=== PATIENT | female | born 1990 | race American Indian/Alaskan Native ===

== ENCOUNTER 2016-09-24 12:20 | Emergency (ER) | payer MEDICAID ==
[2016-09-24 13:29] LABS: Basophils % (Auto) 0.4 % (0.0-1.8); Hematocrit 37.6 % (30.3-42.9); Hemoglobin 12.4 gm/dl (10.1-14.3); Mean Corpuscular HGB Conc 33 % (30-34); Mean Corpuscular Hemoglobin 27 pg (28-32); Mean Corpuscular Volume 83 fl (79-97); Platelet Count 131 K/mm3 (140-440); Red Blood Count 4.53 M/mm3 (3.65-5.03); Red Cell Distribution Width 15.8 % (13.2-15.2); White Blood Count 7.2 K/mm3 (4.5-11.0)
[2016-09-24 13:42] LABS: Alanine Aminotransferase 21 units/L (7-56); Albumin 3.6 g/dL (3.9-5); Albumin/Globulin Ratio 1.2 %; Alkaline Phosphatase 70 units/L (35-129); Anion Gap 16 mmol/L; BUN/Creatinine Ratio 16.66; Bilirubin,Total 0.2 mg/dL (0.1-1.2); Blood Urea Nitrogen 10 mg/dL (7-17); Calcium 9.2 mg/dL (8.4-10.2); Carbon Dioxide 24 mmol/L (22-30); Chloride 102.4 mmol/L (98-107); Glucose 69 mg/dL (65-100); Lipase 20 units/L (13-60); Potassium 3.9 mmol/L (3.6-5.0); Sodium 138 mmol/L (137-145); Total Protein 6.7 g/dL (6.3-8.2)
[2016-09-24 13:53] LABS: Bacteria,Urine 1+ /HPF (Negative); Bilirubin,Urine NEG (Negative); Blood,Urine NEG (Negative); Ketones,Urine NEG (Negative); Leukocyte Esterase,Urine SM (Negative); Mucus,Urine 1+ /HPF; Nitrite,Urine NEG (Negative); Protein,Urine <15 mg/dL mg/dL (Negative)
--- NOTE | 2016-09-24 14:21 | Emergency Department Report ---
HPI - General Chief Complaint: Abdominal Pain Time Seen by Provider: 09/24/16 14:07 - HPI HPI: This is a 26-year-old Afro-Ind[place]ian female presents to the emergency department , driving herself and to be seen, with complaint of a one-week history of lower abdominal pain as well as bilateral lower rib pain. She denies any vaginal bleeding, dysuria, nausea, vomiting, diarrhea, fever, back pain, chest pain or any shortness of breath. She is not taken anything for symptoms prior to presentation. She does not have a primary care doctor but goes to [facility]. She denies any past medical history. No recent travel or sick contacts at home. ED Past Medical Hx - Past Medical History Previous Medical History?: No Hx Hypertension: No Hx Congestive Heart Failure: No Hx Diabetes: No Hx Deep Vein Thrombosis: No Hx Renal Disease: No Hx Sickle Cell Disease: No Hx Seizures: No Hx Asthma: No Hx COPD: No Hx Tuberculosis: No Hx HIV: No - Surgical History Past Surgical History?: No - Social History Smoking Status: Current Every Day Smoker Substance Use Type: Alcohol - Medications Home Medications: Home Medications Medication Instructions Recorded Confirmed Last Taken Type Pnv with Ca,No.72/Iron/FA 1 tab PO DAILY 02/06/15 02/16/15 Unknown History [ Vitamin with Low Iron] Acetaminophen/Codeine [Tylenol #3] 1 tab PO Q8H PRN #9 tablet 03/14/15 Unknown Rx Nitrofurantoin [place]/M-Cryst 100 mg PO Q12HR #14 capsule 03/14/15 Unknown Rx [Macrobid CAP] Amoxicillin [Amoxicillin TAB] 875 mg PO BID #14 tablet 04/15/16 Unknown Rx Benzonatate [Tessalon Perles] 100 mg PO Q8HR #30 capsule 04/15/16 Unknown Rx Ibuprofen [Motrin 800 MG tab] 800 mg PO Q8HR PRN #20 tablet 04/15/16 Unknown Rx Vit No.130/Iron/FA 1 each PO QDAY #30 tablet 09/24/16 Unknown Rx [ Tablet] ED Review of Systems ROS: Stated complaint: LWR ABD PAIN /RT & LT SIDE PAIN Other details as noted in HPI Comment: All other systems reviewed and negative Constitutional: denies: chills, fever Eyes: denies: eye pain, eye discharge, vision change ENT: denies: ear pain, throat pain Respiratory: denies: cough, shortness of breath, wheezing Cardiovascular: denies: chest pain, palpitations Gastrointestinal: abdominal pain. denies: nausea, vomiting Genitourinary: denies: urgency, dysuria, hematuria Musculoskeletal: denies: back pain, joint swelling, arthralgia Skin: denies: rash, lesions Neurological: denies: headache, weakness, paresthesias Physical Exam - Physical Exam Vital Signs: Vital Signs 09/24/16 09/24/16 12:27 13:52 Temperature 98.4 F 98.9 F Pulse Rate 73 68 Respiratory 18 18 Rate Blood Pressure 128/60 Blood Pressure 102/48 [Right] O2 Sat by Pulse 100 96 Oximetry Physical Exam: GENERAL: The patient is well-developed well-nourished. HEENT: Normocephalic. Atraumatic. Extraocular motions are intact. Patient has moist mucous membranes. Pupils equal reactive to light bilaterally. NECK: Supple. Trachea is midline. CHEST/LUNGS: Clear to auscultation. There is no respiratory distress noted. HEART/CARDIOVASCULAR: Regular. There is no tachycardia. There is no gallop rub or murmur. ABDOMEN: Abdomen is soft, nontender. Pain is not reproducible palpation. No guarding rebound tenderness. No peritoneal signs. Patient has normal bowel sounds. There is no abdominal distention. SKIN: There is no rash. There is no edema. There is no diaphoresis. NEURO: The patient is awake, alert, and oriented. The patient is cooperative. The patient has no focal neurologic deficits. The patient has normal speech. MUSCULOSKELETAL: There is no tenderness or deformity. There is no limitation range of motion. There is no evidence of acute injury. ED Course Vital Signs 09/24/16 09/24/16 12:27 13:52 Temperature 98.4 F 98.9 F Pulse Rate 73 68 Respiratory 18 18 Rate Blood Pressure 128/60 Blood Pressure 102/48 [Right] O2 Sat by Pulse 100 96 Oximetry - Reevaluation(s) Reevaluation #1: Patient's urine test is positive. The patient says that she is currently with 4 live children and one previous miscarriage. She will get a transvaginal/ ultrasound and a [facility] hCG quantitative. 09/24/16 14:58 ED Medical Decision Making - Lab Data Result diagrams: 09/24/16 13:08 09/24/16 13:08 - Radiology Data Radiology results: report reviewed Transvaginal/ ultrasound shows a live intrauterine at about 7 weeks and 1 day. - Medical Decision Making 26-year-old female presents emergency Department with a one-week history of some intermittent lower abdominal/pelvic discomfort. Patient's labs are mostly unremarkable but are positive for urine . A quantitative level was then obtained that is greater than 75,000. Transvaginal/ ultrasound shows a live intrauterine . This may be the source of the patient's discomfort. There is no fever, vomiting or peritoneal signs believe she is low suspicion for appendicitis. Belly labs are normal including bilirubin, lipase and LFTs. There is no urinary tract infection. Patient will be started on vitamins. She will use Tylenol for discomfort. She already has established care at [facility]. She'll return to the ER with any worsening of her symptoms or any acute distress. - Differential Diagnosis , miscarriage, fibroids, UTI, cholecystitis Critical Care Time: No Critical care attestation.: If time is entered above; I have spent that time in minutes in the direct care of this critically ill patient, excluding procedure time. ED Disposition Clinical Impression: Qualifiers: Weeks of gestation: less than 8 weeks Qualified Code(s): Z3A.01 - Less than 8 weeks gestation of Abdominal pain Qualifiers: Abdominal location: lower abdomen, unspecified Qualified Code(s): R10.30 - Lower abdominal pain, unspecified Disposition: DISCHARGED TO HOME OR SELFCARE Is pt being admited?: No Condition: Stable Instructions: Abdominal Pain (ED), (ED) Additional Instructions: Please follow up with [facility] in the next few days. Start taking your vitamins. You can take Tylenol every 4 hours, using weight-based dosing, as needed for discomfort. Otherwise do not take any medications that are not prescribed by a physician. Return to the emergency department with any worsening of her symptoms, vaginal bleeding, or any acute distress. Prescriptions: Vit No.130/Iron/FA [ Tablet] 1 each PO QDAY #30 tablet Referrals: PRIMARY MD CARMELA [Primary Care Provider] - 3-5 Days [facility] [Provider Group] - 3-5 Days Time of Disposition: 16:49
--- NOTE | 2016-09-24 16:17 | Ultrasound Report ---
Transabdominal and transvaginal OB ultrasound. Findings: A single intrauterine is identified with a crown-rump length of 1 cm corresponding to gestational age of 7 weeks. The heart rate is 145 beats per minute. There is no evidence of subchorionic hemorrhage. The ovaries are normal in size. There is a 1.9 cm in diameter complex area in the left ovary. There is no fluid within the cul-de-sac. Impression: 1. Viable IUP at 7 weeks gestation. 2. Probable left corpus luteum cyst.
[2016-09-24 17:09] VITALS: BP 110/59
== END 2016-09-24 17:09 | disposition home or self-care (01) ==
LOC: ED 12:20
DX: O26.891 Other specified pregnancy related conditions, first trimester (principal); R10.30 Lower abdominal pain, unspecified; Z3A.01 Less than 8 weeks gestation of pregnancy; F17.200 Nicotine dependence, unspecified, uncomplicated; Z88.5 Allergy status to narcotic agent
CPT/HCPCS: 36415; 76801; 76817; 80053; 81001; 81025; 83690; 84702; 85025; 99284

== ENCOUNTER 2016-12-11 00:35 | Emergency (ER) | payer MEDICAID ==
[2016-12-11 04:06] LABS: Basophils % (Auto) 0.2 % (0.0-1.8); Eosinophils % (Auto) 1.1 % (0.0-4.3); Hematocrit 34.4 % (30.3-42.9); Hemoglobin 11.8 gm/dl (10.1-14.3); Mean Corpuscular HGB Conc 34 % (30-34); Mean Corpuscular Hemoglobin 29 pg (28-32); Mean Corpuscular Volume 84 fl (79-97); Platelet Count 132 K/mm3 (140-440); Red Blood Count 4.08 M/mm3 (3.65-5.03); Red Cell Distribution Width 15.6 % (13.2-15.2)
[2016-12-11 04:11] LABS: Alanine Aminotransferase 9 units/L (7-56); Albumin 3.8 g/dL (3.9-5); Albumin/Globulin Ratio 1.5 %; Alkaline Phosphatase 86 units/L (35-129); Anion Gap 18 mmol/L; Bilirubin,Total < 0.20 mg/dL (0.1-1.2); Blood Urea Nitrogen 8 mg/dL (7-17); Calcium 8.8 mg/dL (8.4-10.2); Carbon Dioxide 22 mmol/L (22-30); Chloride 98.8 mmol/L (98-107); Glucose 92 mg/dL (65-100); Lipase 13 units/L (13-60); Potassium 3.6 mmol/L (3.6-5.0); Sodium 135 mmol/L (137-145); Total Protein 6.4 g/dL (6.3-8.2)
[2016-12-11 04:29] LABS: Bilirubin,Urine NEG (Negative); Blood,Urine NEG (Negative); Ketones,Urine NEG (Negative); Leukocyte Esterase,Urine LG (Negative); Mucus,Urine FEW /HPF; Nitrite,Urine POS (Negative); Urobilinogen,Urine < 2.0 mg/dL (<2.0)
[2016-12-11 04:31] LABS: WBC,Urine > 182.0 /HPF (0.0-6.0)
[2016-12-11] MEDS ORDERED: NACL 0.9% 1000 ML 1,000 ML IV ONE (11:01)
[2016-12-11] MEDS ORDERED: ROCEPHIN/NS 1 GM/50 ML 1 GM/50 ML BAG IV ONE (11:01)
[2016-12-11 12:22] VITALS: BP 116/66
--- NOTE | 2016-12-11 14:12 | Emergency Department Report ---
ED Female HPI - General Chief complaint: Abdominal Pain Stated complaint: ABD/VAGINAL PAIN Time Seen by Provider: 12/11/16 10:33 Source: patient Mode of arrival: Ambulatory Limitations: No Limitations - History of Present Illness MD Complaint: dysuria, pelvic pain -: Gradual Radiation: L flank, R flank Severity: moderate Severity scale (0 -10): 5 Quality: cramping, sharp Consistency: intermittent Improves with: none Worsens with: urination Are you Now?: Yes Associated Symptoms: abdominal pain, dysuria. denies: vaginal discharge, vaginal bleeding, nausea/vomiting, headaches, loss of appetite, hematuria, rash , seizure, shortness of breath, syncope - Related Data Sexually active: Yes : 5 Para: 4 A: 0 Home Medications Medication Instructions Recorded Confirmed Last Taken Pnv with Ca,No.72/Iron/FA 1 tab PO DAILY 02/06/15 02/16/15 Unknown [ Vitamin with Low Iron] Previous Rx's Medication Instructions Recorded Last Taken Type Acetaminophen/Codeine [Tylenol #3] 1 tab PO Q8H PRN #9 tablet 03/14/15 Unknown Rx Amoxicillin [Amoxicillin TAB] 875 mg PO BID #14 tablet 04/15/16 Unknown Rx Benzonatate [Tessalon Perles] 100 mg PO Q8HR #30 capsule 04/15/16 Unknown Rx Ibuprofen [Motrin 800 MG tab] 800 mg PO Q8HR PRN #20 tablet 04/15/16 Unknown Rx Vit No.130/Iron/FA 1 each PO QDAY #30 tablet 09/24/16 Unknown Rx [ Tablet] Nitrofurantoin [place]/M-Cryst 100 mg PO Q12HR #14 capsule 12/11/16 Unknown Rx [Macrobid CAP] Allergies Allergy/AdvReac Type Severity Reaction Status Date / Time morphine Allergy Swelling Verified 03/14/15 16:54 ED Review of Systems ROS: Stated complaint: ABD/VAGINAL PAIN Other details as noted in HPI Comment: All other systems reviewed and negative ED Past Medical Hx - Past Medical History Previous Medical History?: No Hx Hypertension: No Hx Congestive Heart Failure: No Hx Diabetes: No Hx Deep Vein Thrombosis: No Hx Renal Disease: No Hx Sickle Cell Disease: No Hx Seizures: No Hx Asthma: No Hx COPD: No Hx Tuberculosis: No Hx HIV: No - Surgical History Past Surgical History?: No - Social History Smoking Status: Current Every Day Smoker Substance Use Type: None - Medications Home Medications: Home Medications Medication Instructions Recorded Confirmed Last Taken Type Pnv with Ca,No.72/Iron/FA 1 tab PO DAILY 02/06/15 02/16/15 Unknown History [ Vitamin with Low Iron] Acetaminophen/Codeine [Tylenol #3] 1 tab PO Q8H PRN #9 tablet 03/14/15 Unknown Rx Amoxicillin [Amoxicillin TAB] 875 mg PO BID #14 tablet 04/15/16 Unknown Rx Benzonatate [Tessalon Perles] 100 mg PO Q8HR #30 capsule 04/15/16 Unknown Rx Ibuprofen [Motrin 800 MG tab] 800 mg PO Q8HR PRN #20 tablet 04/15/16 Unknown Rx Vit No.130/Iron/FA 1 each PO QDAY #30 tablet 09/24/16 Unknown Rx [ Tablet] Nitrofurantoin [place]/M-Cryst 100 mg PO Q12HR #14 capsule 12/11/16 Unknown Rx [Macrobid CAP] ED Physical Exam - General Limitations: No Limitations General appearance: alert, in no apparent distress - Head Head exam: Present: atraumatic, normocephalic - Eye Eye exam: Present: normal appearance - ENT ENT exam: Present: mucous membranes moist - Neck Neck exam: Present: normal inspection - Respiratory Respiratory exam: Present: normal lung sounds bilaterally. Absent: respiratory distress - Cardiovascular Cardiovascular Exam: Present: regular rate, normal rhythm. Absent: systolic murmur, diastolic murmur, rubs, gallop - GI/Abdominal GI/Abdominal exam: Present: soft, distended (due to ), normal bowel sounds. Absent: tenderness, guarding, rebound - Extremities Exam Extremities exam: Present: normal inspection, full ROM - Back Exam Back exam: Present: normal inspection, full ROM - Neurological Exam Neurological exam: Present: alert, oriented X3 - Psychiatric Psychiatric exam: Present: normal affect, normal mood - Skin Skin exam: Present: warm, dry, intact, normal color. Absent: rash ED Course Vital Signs 12/11/16 12/11/16 12/11/16 02:10 04:51 07:49 Temperature 98.3 F 98.1 F Pulse Rate 18 L 76 Respiratory 85 H 14 14 Rate Blood Pressure 117/62 111/65 Blood Pressure [Left] O2 Sat by Pulse 100 100 100 Oximetry 12/11/16 12:16 Temperature Pulse Rate 78 Respiratory 14 Rate Blood Pressure Blood Pressure 116/66 [Left] O2 Sat by Pulse 100 Oximetry ED Medical Decision Making - Lab Data Result diagrams: 12/11/16 03:25 12/11/16 03:25 Critical care attestation.: If time is entered above; I have spent that time in minutes in the direct care of this critically ill patient, excluding procedure time. ED Disposition Clinical Impression: Pyelonephritis, Urinary tract infection Disposition: DISCHARGED TO HOME OR SELFCARE Is pt being admited?: No Does the pt Need Aspirin: No Condition: Good Instructions: Abdominal Pain (ED) Prescriptions: Nitrofurantoin [place]/M-Cryst [Macrobid CAP] 100 mg PO Q12HR #14 capsule Referrals: PRIMARY CARE, [Primary Care Provider] - 3-5 Days Time of Disposition: 14:41
--- NOTE | 2016-12-11 14:32 | Ultrasound Report ---
OB ULTRASOUND History: Abdominal pain, right flank pain, vaginal spotting. Technique: Transabdominal ultrasound with Doppler interrogation. Gestation: Single Position: Breech Amniotic Fluid: Within normal limits KATE = not measured cm Placenta: Posterior Placental Grade: 0 Heart Rate: 162 BPM Cervical length: 3.5 cm (Normal > 3 cm) BPD: 3.9 cm = 18 w 0 d HC: 15.5 cm = 18 w 3 d AC: 12.9 cm = 18 w 3 d FL: 2.8 cm = 18 w 4 d HC/AC Ratio: 120 Cephalic Index: 73.5 Estimated Weight: 242 grams US Gest. Age = 18 w 3 d EDC: 05/11/17 Comment: There is moderate debris within the maternal bladder. The bladder wall is unremarkable. Please correlate for a cystitis.
== END 2016-12-11 14:49 | disposition home or self-care (01) ==
LOC: ED 00:35
DX: N12 Tubulo-interstitial nephritis, not specified as acute or chronic (principal); N39.0 Urinary tract infection, site not specified; F17.200 Nicotine dependence, unspecified, uncomplicated
CPT/HCPCS: 36415; 76805; 80053; 81001; 81025; 83690; 85025; 87076; 87086; 87186; 96365; 99284; J0696; J7030

== ENCOUNTER 2017-01-10 17:08 | Outpatient (CLI) | payer MEDICAID ==
[2017-01-10 18:32] VITALS: BP 114/55
--- NOTE | 2017-01-11 10:00 | Ultrasound Report ---
OB limited sonogram: History: Rule out obstruction. Findings: Single intrauterine gestation with cephalic presentation. Placenta is posterior and grade 0. heart rate 153 per minute. No evidence of abruption. Impression No evidence of abruption.
== END 2017-01-10 19:03 | disposition home or self-care (01) ==
LOC: TRG 17:08
PROVIDERS: ATTEND Obstetrics & Gynecology
DX: O47.02 False labor before 37 completed weeks of gestation, second trimester (principal); Z3A.17 17 weeks gestation of pregnancy
CPT/HCPCS: 76815

== ENCOUNTER 2017-02-02 16:07 | Outpatient (CLI) | payer MEDICAID ==
[2017-02-02] MEDS ORDERED: LACTATED RINGERS 500 ML IV ONE (18:08)
[2017-02-02 18:53] LABS: Basophils % (Auto) 0.2 % (0.0-1.8); Eosinophils % (Auto) 0.3 % (0.0-4.3); Hemoglobin 9.8 gm/dl (10.1-14.3); Mean Corpuscular HGB Conc 35 % (30-34); Mean Corpuscular Hemoglobin 30 pg (28-32); Mean Corpuscular Volume 85 fl (79-97); Platelet Count 165 K/mm3 (140-440); Red Blood Count 3.28 M/mm3 (3.65-5.03); Red Cell Distribution Width 14.2 % (13.2-15.2); White Blood Count 8.9 K/mm3 (4.5-11.0)
[2017-02-02 19:32] VITALS: BP 122/57
[2017-02-02 20:11] LABS: Bilirubin,Urine NEG (Negative); Blood,Urine SM (Negative); Ketones,Urine NEG (Negative); Leukocyte Esterase,Urine LG (Negative); Mucus,Urine 2+ /HPF; Nitrite,Urine POS (Negative)
[2017-02-02 20:12] LABS: WBC,Urine > 182.0 /HPF (0.0-6.0)
[2017-02-02] MEDS ORDERED: TYLENOL PO ONE (20:25)
== END 2017-02-02 21:20 | disposition home or self-care (01) ==
LOC: TRG 16:07 → LD 16:12 → TRG 21:20
PROVIDERS: ATTEND Obstetrics & Gynecology
DX: O47.02 False labor before 37 completed weeks of gestation, second trimester (principal); Z3A.26 26 weeks gestation of pregnancy
CPT/HCPCS: 36415; 81001; 85025; 96360

== ENCOUNTER 2017-03-28 23:04 | Outpatient (CLI) | payer MEDICAID ==
[2017-03-28 23:35] VITALS: BP 103/65
[2017-03-29] MEDS ORDERED: LACTATED RINGERS 500 ML IV ONE (00:37)
[2017-03-29 01:23] LABS: Bacteria,Urine 4+ /HPF (Negative); Bilirubin,Urine NEG (Negative); Blood,Urine NEG (Negative); Ketones,Urine NEG (Negative); Leukocyte Esterase,Urine LG (Negative); Mucus,Urine 2+ /HPF; Nitrite,Urine POS (Negative); Urobilinogen,Urine < 2.0 mg/dL (<2.0)
[2017-03-29 01:24] LABS: WBC,Urine > 182.0 /HPF (0.0-6.0)
[2017-03-29] MEDS ORDERED: BRETHINE SUB-Q ONE (02:49)
[2017-03-29] MEDS ORDERED: ROCEPHIN/NS 1 GM/50 ML 1 GM/50 ML BAG IV SCH (03:00)
--- NOTE | 2017-03-29 08:31 | Event Note ---
Date: 03/29/17 26 year old female presented to L&D triage very late in the evening of 03/28/17. EDC 05/13/17. EGA 33 weeks, 2 days gestation. Patient states she had been having vaginal bleeding since yesterday; states she saw other spatial scientist at [facility] clinic on 03/27/17 and had speculum exam and cervix check. Patient states she has continued to have small amounts of bleeding. She states blood is bright red and she mostly sees it when she wipes. She denies any recent intercourse. She states she has fallen 3 times during this ; last time she fell was about 3 weeks ago. She states she slid and landed on her back and butt. Patient reports a history of a previous delivery at 35 weeks gestation. She was supposed to be seeing [facility] and getting progesterone injections but she states she missed her appointment and never rescheduled. Patient states she works at [employer] and stands on her feet all day and sometimes feels contractions while she is at work. She denies regular contractions. She denies leaking of fluid. She reports active movement. Patient denies fever, chills, malaise, or flank pain. She denies nausea or vomiting. Patient is well appearing, alert, oriented, NAD. Vital signs are normal; patient is afebrile. Abdomen is soft, nontender. FHR normal baseline rate, moderate variability, a few variable FHR declerations, small accelerations noted. SSE performed: no pooling, no leaking of fluid, no bleeding noted. White vaginal discharge seen, small amount. FFN done. Cervix FT/thick/-3. Irregular uterine contractions noted per monitor; no regular contractions. Contractions resolving with IV hydration. Urinalysis showed large amount of leukocytes and + nitrites. IV Rocephin, urine C&S, BPP and US to check placenta were ordered. Was notified by RN that patient signed out AMA and refused US, BPP, IV antibiotics, and remainder of IV hydration. Rx for Macrobid called to [facility] on [facility] for UTI.
[2017-03-29 16:06] LABS: Urine Drugs of Abuse Note Disclamer
== END 2017-03-29 03:53 | disposition left against medical advice (07) ==
LOC: TRG 23:04
PROVIDERS: ATTEND Obstetrics & Gynecology
DX: O46.93 Antepartum hemorrhage, unspecified, third trimester (principal); O62.9 Abnormality of forces of labor, unspecified; Z3A.34 34 weeks gestation of pregnancy
CPT/HCPCS: 36415; 80307; 81001; 82731; 87086; 96360; J0696; J7120

== ENCOUNTER 2017-04-10 13:26 | Outpatient (CLI) | payer MEDICAID ==
[2017-04-10] MEDS ORDERED: LACTATED RINGERS 500 ML IV ONE (15:00)
== END 2017-04-10 15:30 | disposition home or self-care (01) ==
LOC: TRG 13:26 → LD 13:30 → TRG 15:30
PROVIDERS: ATTEND Obstetrics & Gynecology
DX: O47.03 False labor before 37 completed weeks of gestation, third trimester (principal); Z3A.35 35 weeks gestation of pregnancy
CPT/HCPCS: 59025; J7120

== ENCOUNTER 2017-04-12 13:34 | Observation (INO) | payer MEDICAID ==
[2017-04-12] MEDS ORDERED: LACTATED RINGERS 500 ML IV ONE (13:58)
[2017-04-12 14:42] LABS: Bacteria,Urine 3+ /HPF (Negative); Bilirubin,Urine NEG (Negative); Blood,Urine SM (Negative); Ketones,Urine NEG (Negative); Leukocyte Esterase,Urine LG (Negative); Mucus,Urine FEW /HPF; Nitrite,Urine NEG (Negative); Protein,Urine <15 mg/dL mg/dL (Negative); Urobilinogen,Urine < 2.0 mg/dL (<2.0)
[2017-04-12 14:43] LABS: WBC,Urine > 182.0 /HPF (0.0-6.0)
[2017-04-12] MEDS ORDERED: ZOFRAN IV PRN (16:58)
[2017-04-12] MEDS ORDERED: TYLENOL PO PRN (16:58)
[2017-04-12] MEDS ORDERED: LACTATED RINGERS 1,000 ML IV SCH (17:00)
[2017-04-12] MEDS ORDERED: LACTATED RINGERS 1,000 ML ONE (17:06)
--- NOTE | 2017-04-12 18:29 | History and Physical Report ---
History of Present Illness Date of examination: 04/12/17 Date of admission: 04/12/17 Chief complaint: at 35 weeks, 6 days gestation. UTI with flank pain and nausea/ vomiting. History of present illness: 26 year old female presents at 35 weeks, 6 days gestation complaining of lower back pain, left flank pain, nausea and vomiting for past 1-2 days. Patient denies chills or fever. Reports malaise. Patient denies vaginal bleeding. Patient denies falls or abdominal trauma. States she woke up last night and thought she was wet but did not go to doctor. Patient reports baby is moving well. Patient sees [facility] for her care and denies any complications with this . Past History Past Medical History: no pertinent history Past Surgical History: no surgical history PIGMENT GRINDER History: abnormal PAP smear, other (Patient denies any significant PIGMENT GRINDER infections) Family/Genetic History: denies: neural tube defect, Down's syndrome, congenital heart defect, mental retardation Social history: lives with family. denies: smoking, alcohol abuse, prescription drug abuse - Obstetrical History Expected Date of Delivery: 05/11/17 Actual Gestation: 35 Week(s) 6 Day(s) : 5 Para: 4 Hx # Term Pregnancies: 3 Number of Pregnancies: 1 Spontaneous Abortions: 0 Induced : 0 Number of Living Children: 4 Medications and Allergies Allergies Allergy/AdvReac Type Severity Reaction Status Date / Time morphine Allergy Swelling Verified 03/14/15 16:54 Active Meds: Active Medications Acetaminophen (Tylenol) 650 mg PO Q4H PRN PRN Reason: Pain MILD(1-3)/Fever >100.5/PETERSON Lactated Ringer's (Lactated Ringers) 1,000 mls @ 125 mls/hr IV DIRECT LORENA Ceftriaxone Sodium (Rocephin/Ns 1 Gm/50 Ml) 1 gm in 50 mls @ 100 mls/hr IV Q12H LORENA PRN Reason: Protocol Multivitamins/Iron/Calcium ( Vitamin) 1 each PO QDAY LORENA Ondansetron HCl (Zofran) 4 mg IV Q6H PRN PRN Reason: Nausea And Vomiting Review of Systems All systems: negative (flank pain, low back pain, nausea and vomiting) - Vital Signs Vital signs: Vital Signs Pulse Pulse Ox 115 H 82 L 04/12/17 14:22 04/12/17 14:22 Temp Pulse Resp BP Pulse Ox 78 114/46 90 04/12/17 16:01 04/12/17 15:54 04/12/17 16:01 - Physical Exam Cardiovascular: Regular rate, No murmurs Lungs: Positive: Clear to auscultation Abdomen: Positive: normal appearance, soft, other (positive left CVAT on exam). Negative: distention, tenderness, guarding, rigidity Genitourinary (Female): Positive: normal external genitalia, normal perenium, other (Speculum exam showed no pooling, no vaginal bleeding, clear to white thick mucous discharge, negative fern test; urinalysis showed leukocytes and blood.). Negative: perineal/vulvar lesions Uterus: Positive: enlarged. Negative: tender Extremities: Positive: normal. Negative: edema - Obstetrical FHR: category 1 (reactive NST) Uterine Contraction Monitor Mode: External Cervical Dilatation: 0.5 Cervical Effacement Percentage: 10 station: -4 Uterine Contraction Intensity: Mild (contractions resolved with IV hydration) Results Abnormal lab results 04/12/17 Range/Units 13:58 Urine WBC (Auto) > 182.0 H (0.0-6.0) /HPF All other labs normal. Assessment and Plan A: at 35 weeks, 6 days gestation. Pyelonephritis. contractions resolved; not in labor. P: Admit patient. IV hydration and IV antibiotics. Urinalysis, urine C&S, CBC, CMP, EFM. Discussed plan of care with patient and patient states she is in agreement with plan of care.
[2017-04-12] MEDS ORDERED: AMBIEN PO PRN (20:58)
[2017-04-12] MEDS: ROCEPHIN/NS 1 GM/50 ML 1 GM/50 ML BAG IV SCH (21:06)
[2017-04-12 21:34] LABS: Alanine Aminotransferase 10 units/L (7-56); Albumin 2.9 g/dL (3.9-5); Alkaline Phosphatase 211 units/L (35-129); Anion Gap 16 mmol/L; Blood Urea Nitrogen 5 mg/dL (7-17); Calcium 8.4 mg/dL (8.4-10.2); Carbon Dioxide 22 mmol/L (22-30); Chloride 105.3 mmol/L (98-107); Glucose 98 mg/dL (65-100); Potassium 3.6 mmol/L (3.6-5.0); Sodium 140 mmol/L (137-145); Total Protein 5.8 g/dL (6.3-8.2)
[2017-04-12 21:41] LABS: Basophils % (Auto) 0.3 % (0.0-1.8); Eosinophils % (Auto) 1.3 % (0.0-4.3); Hematocrit 29.1 % (30.3-42.9); Hemoglobin 10.1 gm/dl (10.1-14.3); Mean Corpuscular HGB Conc 35 % (30-34); Mean Corpuscular Hemoglobin 29 pg (28-32); Mean Corpuscular Volume 83 fl (79-97); Platelet Count 141 K/mm3 (140-440); Red Blood Count 3.52 M/mm3 (3.65-5.03); White Blood Count 5.4 K/mm3 (4.5-11.0)
[2017-04-13] MEDS: ROCEPHIN/NS 1 GM/50 ML 1 GM/50 ML BAG IV SCH (07:59)
[2017-04-13] MEDS ORDERED: PRENATAL VITAMIN PO SCH (10:00)
--- NOTE | 2017-04-13 10:32 | Progress Note ---
Assessment and Plan A: at 36 weeks gestation. Pyelonephritis. contractions resolved. P: Plan to discharge patient home this afternoon after she receives her next dose of IV Rocephin. Plan is to discharge patient home on oral Macrobid. Plan for patient to follow up with [facility] this week. Will re-evaluate patient this afternoon prior to discharge. Subjective - Subjective Date of service: 04/13/17 Principal diagnosis: at 36 weeks gestation. Pyelonephritis. contractions. Interval history: Patient is a female at 36 weeks gestation who was admitted yesterday evening for left flank pain, nausea and vomiting, and malaise (suspected pyelonephritis) and contractions. Patient has received IV hydration with Lactated Ringers solution. Patient has received IV Rocephin times 2 doses so far. Patient has been afebrile overnight. Her vital signs have been normal. Her WBC is not elevated. Urine C&S is still pending. Patient states her nausea is improving. She states she is voiding without difficulty. She is tolerating a regular diet and has not vomited overnight. Patient reports active movement. She denies contractions this AM. She denies vaginal bleeding or leaking of fluid. Discussed with Dr. Pagan and with patient that I plan to discharge patient this afternoon after she receives one more dose of IV Rocephin. I informed patient that she will be discharged home on an oral antibiotic and that she needs to take these as prescribed without missing any doses and that she needs to increase the amount of water she is drinking and avoid sodas. Patient reports: no loss of fluid, no vaginal bleeding Objective - Vital Signs Vital Signs: Vital Signs - 12hr 04/13/17 04/13/17 04/13/17 06:10 06:33 07:45 Temperature 98.5 F 97.5 F L Pulse Rate 58 L 58 L 64 Respiratory 18 20 Rate Blood Pressure 112/64 Blood Pressure 112/64 106/50 [Right] 04/13/17 07:49 Temperature Pulse Rate 64 Respiratory Rate Blood Pressure 106/50 Blood Pressure [Right] - Exam Breasts: deferred Cardiovascular: Regular rate, No murmurs Lungs: Clear to auscultation Abdomen: Present: normal appearance, soft. Absent: tenderness, guarding, rigidity Uterus: Present: normal, fundal height above umbilicus FHR: category 1 Uterine Contraction Monitor Mode: External Extremities: normal - Labs Labs: Abnormal Labs 04/12/17 04/12/17 04/12/17 13:58 20:37 20:37 RBC 3.52 L Hct 29.1 L MCHC 35 H BUN 5 L Creatinine 0.5 L Alkaline Phosphatase 211 H Total Protein 5.8 L Albumin 2.9 L Urine WBC (Auto) > 182.0 H Laboratory Results - last 24 hr 04/12/17 04/12/17 04/12/17 13:58 20:37 20:37 WBC 5.4 RBC 3.52 L Hgb 10.1 Hct 29.1 L MCV 83 MCH 29 MCHC 35 H RDW 14.0 Plt Count 141 Lymph % (Auto) 28.3 [place] % (Auto) 7.1 Eos % (Auto) 1.3 Baso % (Auto) 0.3 Lymph # 1.5 [place] # 0.4 Eos # 0.1 Baso # 0.0 Seg Neutrophils % 63.0 Seg Neutrophils # 3.4 Sodium 140 Potassium 3.6 Chloride 105.3 Carbon Dioxide 22 Anion Gap 16 BUN 5 L Creatinine 0.5 L Estimated GFR > 60 BUN/Creatinine Ratio 10.00 Glucose 98 Calcium 8.4 Total Bilirubin 0.20 AST 14 ALT 10 Alkaline Phosphatase 211 H Total Protein 5.8 L Albumin 2.9 L Albumin/Globulin Ratio 1.0 Urine Color Yellow Urine Turbidity Clear Urine pH 6.0 Ur Specific [place] 1.006 Urine Protein <15 mg/dl Urine Glucose (UA) Neg Urine Ketones Neg Urine Blood Sm Urine Nitrite Neg Urine Bilirubin Neg Urine Urobilinogen < 2.0 Ur Leukocyte Esterase Lg Urine WBC (Auto) > 182.0 H Urine RBC (Auto) 30.0 U Epithel Cells (Auto) 5.0 Urine Bacteria (Auto) 3+ Urine WBC Clumps 2+ Urine Mucus Few Urine Yeast (Budding) 3+
[2017-04-13 12:47] VITALS: BP 112/56
--- NOTE | 2017-04-13 16:31 | Event Note ---
Date: 04/13/17 Patient had BPP this afternoon which was 8/8; KATE 13.3. Reactive NST. Patient states she is feeling better. Patient denies fever or chills or flank pain or back pain. Patient reports active movement. Patient denies contractions. Patient denies vaginal bleeding or leaking of fluid. Will discharge patient home this afternoon. Patient is to take Macrobid 100 mg po BID for 10 days, Flagyl 500 mg po BID for 7 days, and Terazol 3 vaginal cream, one applicatorful vaginally at for 3 days. Advised patient to follow up with [facility] this week. Advised patient to drink more water and avoid sodas. Discharge instructions and warning signs were discussed with patient in detail and patient states she has no questions or concerns. Please see discharge summary and progress note for today.
--- NOTE | 2017-04-13 16:35 | Discharge Summary ---
Providers - Providers Date of Admission: 04/12/17 19:44 Date of discharge: 04/13/17 Attending physician: Dr. Rio Pagan None Primary care physician: BERNY MENDEZ MD Hospitalization Reason for admission: other ( at 36 weeks with pyelonephritis and contractions, resolved) Delivery: other (36 weeks gestation, undelivered) Discharge diagnosis: other ( at 36 weeks gestation, undelivered; UTI; contractions, resolved) Pertinent studies: Labs, ultrasound, monitoring Hospital course: Normal hospital course Condition at discharge: Good Disposition: DC-01 TO HOME OR SELFCARE - Discharge Diagnoses (1) Threatened labor Status: Resolved Qualifiers: Trimester: third trimester Qualified Code(s): O47.03 - False labor before 37 completed weeks of gestation, third trimester (2) Pyelonephritis Status: Resolved (3) Urinary tract infection Status: Acute Plan - Provider Discharge Summary Activity: no sex for 6 weeks, other (rest at home, increase water intake, avoid sodas, avoid IC) Diet: routine Instructions: other (Take Macrobid, Flagyl, and Terazol vaginal cream (waiting for pt. at [facility]); return promptly if continued or worsening symptoms or UTI warning signs; follow up with [facility] this week.) Additional instructions: Call your doctor immediately for: * Fever > 100.5 * Severe persistent headache * Shortness of breath - Follow up plan Follow up: BERNY MENDEZ MD [Primary Care Provider] - 04/14/17 10:00 am
--- NOTE | 2017-04-14 08:05 | Ultrasound Report ---
ULTRASOUND BIOPHYSICAL PROFILE: History: well being, variable heart rate decelerations Technique: Transabdominal ultrasound with Doppler interrogation. 2 - breathing movements 2 - movements 2 - posture and tone 2 - Qualitative amniotic fluid volume 8 - TOTAL SCORE OF POSSIBLE 8 Heart Rate (bpm) 156
--- NOTE | 2017-04-14 08:05 | Ultrasound Report ---
ULTRASOUND OB LIMITED History: well being, evaluate amniotic fluid Technique: Transabdominal ultrasound with Doppler interrogation. Gestation: Single Position: Cephalic Amniotic Fluid: Normal KATE = 13.3 cm Heart Rate: 159 BPM
== END 2017-04-13 17:15 | disposition home or self-care (01) ==
LOC: TRG 13:34 → LD 19:44
PROVIDERS: ADMIT Obstetrics & Gynecology; ATTEND Obstetrics & Gynecology
DX: O23.43 Unspecified infection of urinary tract in pregnancy, third trimester (principal); O23.03 Infections of kidney in pregnancy, third trimester; O21.2 Late vomiting of pregnancy; O60.03 Preterm labor without delivery, third trimester; O26.893 Other specified pregnancy related conditions, third trimester; R10.9 Unspecified abdominal pain; M54.5 Low back pain; Z3A.35 35 weeks gestation of pregnancy
CPT/HCPCS: 36415; 76815; 76819; 80053; 81001; 85025; 87086; 96361; 96365; 96375; G0378; J0696; J2405; J7120; 87076; 87186

== ENCOUNTER 2017-04-25 11:04 | Observation (INO) | payer MEDICAID ==
[2017-04-25] MEDS ORDERED: BRETHINE SUB-Q PRN (11:57)
[2017-04-25] MEDS ORDERED: POLYCILLIN/NS 2 GM/100 ML 2 GM/100 ML BAG IV ONE ×2 (11:57→12:26)
[2017-04-25] MEDS ORDERED: ePHEDrine SULFATE IV PRN ×2 (11:57→15:52)
[2017-04-25] MEDS ORDERED: BRETHINE IVP PRN (11:57)
[2017-04-25] MEDS ORDERED: MINERAL OIL PO PRN (11:57)
[2017-04-25] MEDS ORDERED: XYLOCAINE 2% INFILTRATI ONE (11:57)
[2017-04-25] MEDS ORDERED: PITOCin/NS 30 UNIT/500ML 30 UNITS/500 ML BAG IV SCH (12:00)
[2017-04-25] MEDS ORDERED: PITOCin/NS 20 UNIT/1000ML DRIP 20 UNITS/1,000 ML BAG IV SCH (12:00)
[2017-04-25] MEDS ORDERED: LACTATED RINGERS 1,000 ML ONE (12:26)
[2017-04-25 12:29] LABS: Hemoglobin 10.7 gm/dl (10.1-14.3); Mean Corpuscular HGB Conc 34 % (30-34); Mean Corpuscular Hemoglobin 28 pg (28-32); Mean Corpuscular Volume 82 fl (79-97); Platelet Count 151 K/mm3 (140-440); Red Blood Count 3.78 M/mm3 (3.65-5.03); Red Cell Distribution Width 14.1 % (13.2-15.2); White Blood Count 6.1 K/mm3 (4.5-11.0)
[2017-04-25] MEDS: LACTATED RINGERS 1,000 ML IV SCH ×2 (12:35→22:23)
[2017-04-25] MEDS: SUBLIMAZE IV PRN ×2 (12:43→14:29)
[2017-04-25] MEDS ORDERED: ePHEDrine SULFATE ONE (15:13)
[2017-04-25] MEDS ORDERED: NARCAN 2 MG/2 ML IV PRN (15:52)
--- NOTE | 2017-04-25 15:52 | Anesthesia Consultation ---
Anesthesia Consult and Med Hx Date of service: 04/25/17 - Airway Anesthetic Teeth Evaluation: Good ROM Head & Neck: Adequate Mental/Hyoid Distance: Adequate Mallampati Class: Class II Intubation Access Assessment: Probably Good - Pulmonary Exam CTA: Yes - Cardiac Exam Cardiac Exam: RRR - Pre-Operative Health Status ASA Pre-Surgery Classification: ASA2 Proposed Anesthetic Plan: Epidural, Spinal - Pulmonary Hx Asthma: No COPD: No Hx Pneumonia: No - Cardiovascular System Hx Hypertension: No - Central Nervous System Hx Seizures: No Hx Psychiatric Problems: No - Endocrine Hx Renal Disease: No Hx End Stage Renal Disease: No Hx Hypothyroidism: No Hx Hyperthyroidism: No - Hematic Hx Anemia: No Hx Sickle Cell Disease: No - Other Systems Hx Alcohol Use: No - Additional Comments Anesthesia Medical History Comments: IUP
[2017-04-25] MEDS: POLYCILLIN/NS 1 GM/50 ML 1 GM/50 ML BAG IV SCH ×2 (16:08→20:45)
[2017-04-25] MEDS: fentaNYL-BUPIV 2 MCG/ML-0.125% 200 MCG/100 ML BAG EPIDURAL SCH ×2 (16:15→23:32)
[2017-04-25] MEDS ORDERED: ZOFRAN IV PRN (16:17)
[2017-04-25] MEDS ORDERED: BENADRYL PO NR (19:00)
[2017-04-25] MEDS ORDERED: BENADRYL ONE (19:08)
[2017-04-25] MEDS ORDERED: BENADRYL IV ONE (19:10)
--- NOTE | 2017-04-25 20:21 | History and Physical Report ---
History of Present Illness Date of examination: 04/25/17 Date of admission: 04/25/2017 Chief complaint: Contractions since midnight last night History of present illness: 26 year old presented to L&D in early labor. Patient reports her contractions started at about midnight last night and have become more regular since. Patient denies leaking of fluid or vaginal bleeding. Patient reports active movement. GBS positive. Past History Past Medical History: other (Bipolar disorder, not on medications) Past Surgical History: no surgical history [employer] [facility] History: abnormal PAP smear (LSIL), herpes (HSV 2 positive serology; patient has been taking Valtrex for suppression; pt. denies lesions or prodromal symptoms; no lesions seen on careful exam with bright light upon admission), trichomonas (Treated and cured during ) Family/Genetic History: diabetes, heart disease, hypertension, stroke, cancer Social history: lives with family, full code. denies: smoking, alcohol abuse, prescription drug abuse, IV drug use - Obstetrical History Expected Date of Delivery: 05/11/17 Actual Gestation: 37 Week(s) 5 Day(s) : 5 Para: 4 Hx # Term Pregnancies: 5 Number of Pregnancies: 0 Spontaneous Abortions: 0 Induced : 0 Number of Living Children: 4 Medications and Allergies Allergies Allergy/AdvReac Type Severity Reaction Status Date / Time morphine Allergy Swelling Verified 03/14/15 16:54 Home Medications Medication Instructions Recorded Confirmed Last Taken Type No Known Home Medications [No 04/13/17 04/13/17 Unknown History Reported Home Medications] Active Meds: Active Medications Diphenhydramine HCl (Benadryl) 50 mg PO ONCE NR Stop: 04/25/17 23:00 Last Admin: 04/25/17 18:52 Dose: 50 mg Fentanyl (Sublimaze) 100 mcg IV Q2H PRN PRN Reason: Labor Pain Last Admin: 04/25/17 14:29 Dose: 100 mcg Ampicillin Sodium (Polycillin/Ns 1 Gm/50 Ml) 1 gm in 50 mls @ 100 mls/hr IV Q4HR LORENA PRN Reason: Protocol Last Admin: 04/25/17 16:08 Dose: 100 mls/hr Lactated Ringer's (Lactated Ringers) 1,000 mls @ 125 mls/hr IV DIRECT LORENA Last Admin: 04/25/17 12:35 Dose: 125 mls/hr Oxytocin/Sodium Chloride (Pitocin/Ns 20 Unit/1000ml Drip) 20 units in 1,000 mls @ 125 mls/hr IV DIRECT LORENA Oxytocin/Sodium Chloride (Pitocin/Ns 30 Unit/500ml) 30 units in 500 mls @ 2 mls /hr IV TITR LORENA PRN Reason: Protocol Last Titration: 04/25/17 19:49 Dose: 12 ml/hr, 12 mls/hr Fentanyl/Bupivacaine/Sodium Chlor (Fentanyl-Bupiv 2 Mcg/Ml-0.125%) 200 mcg in 100 mls @ 12 mls/hr EPIDURAL TITR LORENA PRN Reason: Protocol Last Admin: 04/25/17 16:15 Dose: 12 mls/hr Mineral Oil (Mineral Oil) 30 ml PO QHS PRN PRN Reason: Constipation Ondansetron HCl (Zofran) 4 mg IV Q8H PRN PRN Reason: Nausea And Vomiting Last Admin: 04/25/17 19:47 Dose: 4 mg Review of Systems All systems: negative (contractions) - Vital Signs Vital signs: Vital Signs Pulse BP 70 124/59 04/25/17 11:47 04/25/17 11:47 Temp Pulse Resp BP Pulse Ox 98.7 F 59 L 18 107/54 04/25/17 19:15 04/25/17 20:13 04/25/17 19:15 04/25/17 20:13 - Physical Exam Breasts: Positive: deferred Cardiovascular: Regular rate, Normal S1, Normal S2, No murmurs Lungs: Positive: Clear to auscultation Abdomen: Positive: normal appearance. Negative: soft Uterus: Positive: enlarged. Negative: tender Anus/Rectum: Positive: normal perianal skin Extremities: Positive: normal. Negative: tenderness, edema - Obstetrical FHR: category 1 Uterine Contraction Monitor Mode: External Cervical Dilatation: 3 Cervical Effacement Percentage: 70 station: -2 Uterine Contraction Pattern: Irregular Uterine Contraction Intensity: Moderate Results Result Diagrams: 04/25/17 12:00 All other labs normal. Assessment and Plan A: at 37 weeks, 5 days gestation. Early labor. GBS positive. P: GBS prophylaxis. Anticipate .
--- NOTE | 2017-04-25 22:34 | Event Note ---
Date: 04/25/17 Cervix has changed to 4 cm, 75% effaced, -2 station.
[2017-04-26] MEDS: POLYCILLIN/NS 1 GM/50 ML 1 GM/50 ML BAG IV SCH ×2 (01:06→05:18)
--- NOTE | 2017-04-26 05:53 | Event Note ---
Date: 04/26/17 Patient reports she feels pressure and requests to be checked. SVE 5/75/-1. AROM with small amount of clear fluid to augment labor. Contractions are regular and patient is comfortable since receiving epidural. FHR baseline 135 with moderate variability and early FHR decelerations. Maternal vital signs stable.
[2017-04-26] MEDS: fentaNYL-BUPIV 2 MCG/ML-0.125% 200 MCG/100 ML BAG EPIDURAL SCH (06:29)
[2017-04-26] MEDS: LACTATED RINGERS 1,000 ML IV SCH (06:35)
--- NOTE | 2017-04-26 07:52 | Event Note ---
Date: 04/26/17 SVE 0.
--- NOTE | 2017-04-26 08:49 | Event Note ---
Date: 04/26/17 SVE 0 to +.
--- NOTE | 2017-04-26 09:40 | Procedure Note ---
OB Delivery Note - Vaginal Delivery position: OA Delivery induction: none Delivery augmentation: rupture of membranes Delivery monitor: external FHT, external uterine Route of delivery: Delivery placenta: spontaneous Delivery cord: 3 umbilical vessels Episiotomy: none Delivery laceration: none Anesthesia: epidural Delivery comments: Spontaneous vaginal delivery of liveborn male infant weighing 7 lbs. over intact perineum with apgars of 8/9. Baby placed immediately on mother's chest and dried, bulb suctioned, and stimulated. Spontaneous delivery of intact placenta and membranes by parnell mechanism. EBL 300 ml. Pitocin to IV fluids after delivery of placenta. No lacerations noted. Sponge count correct. Vaginal sweep negative.
[2017-04-26] MEDS ORDERED: LANSINOH TP PRN (10:00)
[2017-04-26] MEDS ORDERED: TUCKS PAD TP PRN (10:00)
[2017-04-26] MEDS ORDERED: TYLENOL PO PRN (10:00)
[2017-04-26] MEDS ORDERED: SODIUM CHLORIDE FLUSH SYRINGE 10 ML IV PRN (10:00)
[2017-04-26] MEDS: NORCO 5/325 PO PRN (17:47)
[2017-04-26] MEDS: MOTRIN PO SCH (20:26)
[2017-04-26 21:54] LABS: Hematocrit 26.8 % (30.3-42.9)
[2017-04-27] MEDS: NORCO 5/325 PO PRN ×4 (00:28→18:39)
[2017-04-27] MEDS ORDERED: BOOSTRIX IM ONE (06:00)
[2017-04-27] MEDS: MOTRIN PO SCH ×5 (06:07→23:46)
--- NOTE | 2017-04-27 09:12 | Progress Note ---
Assessment and Plan A: day 1 S/P spontaneous vaginal delivery. Low back pain and dysuria. . Anemia. P: Urine for C&S. Advised patient to increase water intake. Augmentin and Ferrous Sulfate ordered. Anticipate discharge tomorrow. Subjective - Subjective Date of service: 04/27/17 Principal diagnosis: day 1 S/P Interval history: day 1 S/P spontaneous vaginal delivery. Patient is . Patient reports mild dysuria and lower back pain and states her urine has a strong odor since last night. Patient denies fever, chills, nausea, vomiting, malaise. Patient is voiding frequently. She reports small amount of lochia. She denies vaginal discharge. Patient is ambulating well and tolerating a regular diet. Patient denies headache, chest pain, cough, shortness of breath, leg pain , abdominal pain, or symptoms of depression. Patient is considering Nexplanon for contraception. Patient reports: appetite normal, voiding normally, pain well controlled, ambulating normally, no nauseated [place]: doing well Objective - Vital Signs Latest vital signs: Vital Signs Temp Pulse Resp BP BP 04/27/17 00:19 97.8 F 52 L 20 115/44 04/26/17 21:36 97.3 F L 55 L 20 112/51 04/26/17 16:45 98.0 F 68 20 112/62 04/26/17 12:00 98.8 F 64 18 99/45 04/26/17 10:33 61 111/61 04/26/17 10:03 67 106/59 04/26/17 09:35 97.7 F 77 14 113/71 04/26/17 09:34 77 113/71 Intake and Output 04/26/17 04/27/17 04/27/17 23:59 07:59 15:59 Intake Total 360 240 Output Total 100 200 Balance 260 40 Intake: Oral 240 Intake, Free Water 360 Output: Urine 100 200 Void 100 200 Other: Total, Intake Amount 240 Total, Output Amount 100 200 - Exam Breasts: Present: deferred Cardiovascular: Present: Regular rate, Normal S1, Normal S2. Absent: No murmurs Lungs: Present: Clear to auscultation Abdomen: Present: normal appearance, soft. Absent: distention, tenderness, guarding, rigidity Uterus: Present: normal, firm, fundal height below umbilicus. Absent: bogginess , tenderness Extremities: Present: normal. Absent: tenderness, edema - Labs Labs: Abnormal lab results 04/26/17 Range/Units 21:34 Hgb 9.0 L (10.1-14.3) gm/dl Hct 26.8 L (30.3-42.9) %
[2017-04-27] MEDS: FEOSOL PO SCH ×2 (10:01→21:48)
[2017-04-27] MEDS: AUGMENTIN 500 MG PO SCH ×2 (12:26→21:48)
[2017-04-28] MEDS: NORCO 5/325 PO PRN (04:26)
[2017-04-28] MEDS: MOTRIN PO SCH (05:45)
[2017-04-28 08:35] VITALS: BP 94/51
--- NOTE | 2017-04-28 09:39 | Progress Note ---
Assessment and Plan A: PPD # 2 stable P; Discharge home today Subjective - Subjective Principal diagnosis: day 2 S/P Patient reports: appetite normal [place]: doing well Objective - Vital Signs Latest vital signs: Vital Signs Temp Pulse Resp BP Pulse Ox 04/28/17 07:58 98.5 F 51 L 18 94/51 98 04/28/17 07:48 57 L 99 04/28/17 05:45 16 04/28/17 04:26 16 04/28/17 00:00 98.2 F 54 L 20 125/71 04/27/17 23:46 18 04/27/17 19:06 98.0 F 60 20 118/65 04/27/17 18:39 20 04/27/17 12:26 20 Intake and Output 04/27/17 04/28/17 04/28/17 22:59 06:59 14:59 Intake Total 240 Balance 240 Intake: Oral 240 Other: Total, Intake Amount 240 # Voids Void 1 1 - Exam Breasts: Present: deferred Cardiovascular: Present: Regular rate Lungs: Present: Clear to auscultation Abdomen: Present: soft Vulva: both: normal Uterus: Present: fundal height below umbilicus Extremities: Present: normal Deep Tendon Reflex Grade: Normal +2
--- NOTE | 2017-04-28 09:40 | Discharge Summary ---
Providers - Providers Date of Admission: 04/25/17 23:23 Date of discharge: 04/28/17 Attending physician: BERNY MENDEZ MD Primary care physician: BERNY MENDEZ MD Hospitalization Reason for admission: active labor Delivery: Episiotomy: none Laceration: none Other procedures: none complications: none Discharge diagnosis: IUP at term delivered [place] baby: male Condition at discharge: Good Disposition: DC-01 TO HOME OR SELFCARE Plan - Provider Discharge Summary Activity: routine, no sex for 6 weeks, no strenuous exercise Diet: routine Instructions: routine Additional instructions: [] Smoking cessation referral if applicable(refer to patient education folder for contact #) [] Refer to [facility] Call your doctor immediately for: * Fever > 100.5 * Heavy vaginal bleeding ( >1 pad per hour) * Severe persistent headache * Shortness of breath * Reddened, hot, painful area to leg or breast * Drainage or odor from incision. * Keep incision clean and dry at all times and follow doctor's instructions regarding bathing/showering - Follow up plan Follow up: BERNY MENDEZ MD [Primary Care Provider] - 6 Weeks
== END 2017-04-28 11:30 | disposition home or self-care (01) ==
LOC: TRG 11:04 → LD 12:00 → TRG 23:22 → LD 23:23 → OB 04-26 11:01
PROVIDERS: ADMIT Obstetrics & Gynecology; ATTEND Obstetrics & Gynecology
DX: O42.92 Full-term premature rupture of membranes, unspecified as to length of time between rupture and onset of labor (principal); O62.9 Abnormality of forces of labor, unspecified; Z37.0 Single live birth
CPT/HCPCS: 36415; 59409; 85014; 85018; 85027; 86850; 86900; 86901; 87086; 90471; 90715; 96365; 96375; 96376; A6250; G0378; J0290; J1200; J2405; J2590; J3010; J7120; 99211; G0463

== ENCOUNTER 2018-03-05 08:45 | Emergency (ER) | payer MEDICAID ==
--- NOTE | 2018-03-05 09:53 | Emergency Department Report ---
ED Abdominal Pain HPI - General Chief Complaint: Abdominal Pain Stated Complaint: STOMACH PAIN/BACK PAIN Time Seen by Provider: 03/05/18 09:37 Source: patient Mode of arrival: Ambulatory Limitations: No Limitations - History of Present Illness Initial Comments: This is a 27-year-old -[place] female presents with lower abdominal pain for 3 days. Patient reports pain is sharp stabbing pain that is aggravated by standing or sitting. Patient states pain is 10 out of 10 when it occurs and intermittent. She also reports having nausea and vomiting 2-3 weeks ago. Her last menstrual period was 02/15/2018. She states. Started late and only lasted 2 days and very light. Patient states she is sexually active but have not had intercourse since symptoms started. A0. She admits to having some urgency and frequency. Patient denies dysuria, vaginal discharge or bleeding, low back pain, fever, and chest pain. MD Complaint: abdominal pain Onset/Timin -: days(s) Location: diffuse Radiation: none Migration to: no migration Severity scale (0 -10): 10 Quality: stabbing, sharp Consistency: intermittent Improves With: nothing Worsens With: movement Associated Symptoms: nausea, vomiting. denies: diarrhea, fever, chills, dysuria , hematuria - Related Data LMP Date: 02/15/18 Previous Rx's Medication Instructions Recorded Last Taken Type Sulfamethoxazole/Trimethoprim 1 each PO BID #6 tablet 03/05/18 Unknown Rx [Bactrim DS TAB] Allergies Allergy/AdvReac Type Severity Reaction Status Date / Time morphine Allergy Swelling Verified 03/14/15 16:54 ED Review of Systems ROS: Stated complaint: STOMACH PAIN/BACK PAIN Other details as noted in HPI Constitutional: denies: chills, fever Respiratory: denies: cough, shortness of breath, wheezing Cardiovascular: denies: chest pain, palpitations Gastrointestinal: abdominal pain, nausea, vomiting. denies: diarrhea Genitourinary: urgency, frequency. denies: dysuria, hematuria, discharge Musculoskeletal: denies: back pain, joint swelling, arthralgia Neurological: denies: headache, weakness, paresthesias Psychiatric: denies: anxiety, depression ED Past Medical Hx - Past Medical History Previous Medical History?: No Hx Hypertension: No Hx Congestive Heart Failure: No Hx Diabetes: No Hx Deep Vein Thrombosis: No Hx Renal Disease: No Hx Sickle Cell Disease: No Hx Seizures: No Hx Asthma: No Hx COPD: No Hx Tuberculosis: No Hx HIV: No - Surgical History Past Surgical History?: No - Social History Smoking Status: Current Every Day Smoker Substance Use Type: None - Medications Home Medications: Home Medications Medication Instructions Recorded Confirmed Last Taken Type Sulfamethoxazole/Trimethoprim 1 each PO BID #6 tablet 03/05/18 Unknown Rx [Bactrim DS TAB] ED Physical Exam - General Limitations: No Limitations General appearance: alert, in no apparent distress, obese - Respiratory Respiratory exam: Present: normal lung sounds bilaterally. Absent: respiratory distress - Cardiovascular Cardiovascular Exam: Present: regular rate, normal rhythm. Absent: systolic murmur, diastolic murmur, rubs, gallop - GI/Abdominal GI/Abdominal exam: Present: soft, tenderness (suprapubic tenderness), normal bowel sounds. Absent: distended, guarding, rebound, rigid, organomegaly, mass - Back Exam Back exam: Present: full ROM, CVA tenderness (L). Absent: CVA tenderness (R), rash noted - Neurological Exam Neurological exam: Present: alert, oriented X3 - Psychiatric Psychiatric exam: Present: normal affect, normal mood - Skin Skin exam: Present: warm, dry, intact, normal color. Absent: rash ED Course Vital Signs 03/05/18 08:52 Temperature 98.8 F Pulse Rate 82 Respiratory 16 Rate Blood Pressure 143/62 O2 Sat by Pulse 99 Oximetry ED Medical Decision Making - Lab Data Lab Results 03/05/18 Range/Units 09:39 Urine Color Yellow (Yellow) Urine Turbidity Slightly-cloudy (Clear) Urine pH 6.0 (5.0-7.0) Ur Specific [place] 1.021 (1.003-1.030) Urine Protein <15 mg/dl (Negative) mg/dL Urine Glucose (UA) Neg (Negative) mg/dL Urine Ketones Neg (Negative) mg/dL Urine Blood Neg (Negative) Urine Nitrite Pos (Negative) Urine Bilirubin Neg (Negative) Urine Urobilinogen < 2.0 (<2.0) mg/dL Ur Leukocyte Esterase Neg (Negative) Urine WBC (Auto) 5.0 (0.0-6.0) /HPF Urine RBC (Auto) 1.0 (0.0-6.0) /HPF U Epithel Cells (Auto) 5.0 (0-13.0) /HPF Urine Bacteria (Auto) 3+ (Negative) /HPF Urine Mucus 3+ /HPF Urine HCG, Qual Negative (Negative) - Medical Decision Making Patient was examined by myself in fast track. Vitals are normal and patient is in no acute distress. Obtained a urinalysis and urine tests. Patient informed of results. Start Bactrim DS for acute cystitis. Plan discussed with patient to discharge home and treat outpatient. Patient discharged home in stable condition. Follow up with PCP in 2-3 days. Critical care attestation.: If time is entered above; I have spent that time in minutes in the direct care of this critically ill patient, excluding procedure time. ED Disposition Clinical Impression: Urinary tract infection Qualifiers: Urinary tract infection type: acute cystitis Hematuria presence: without hematuria Qualified Code(s): N30.00 - Acute cystitis without hematuria Disposition: TO HOME OR SELFCARE Is pt being admited?: No Does the pt Need Aspirin: No Condition: Stable Instructions: Abdominal Pain (ED), Urinary Tract Infection in Women (ED) Additional Instructions: Increase fluid intake to 1L to 2L daily. Complete full course of antibiotics as prescribed. Avoid drinking alcohol while taking antibiotics and for 24 hours after completion. Follow up with primary care provider in 2-3 days. Prescriptions: Sulfamethoxazole/Trimethoprim [Bactrim DS TAB] 1 each PO BID #6 tablet Referrals: [facility] [Outside] - 3-5 Days [facility] [Outside] - 3-5 Days [facility] [Outside] - 3-5 Days Forms: Work/School Release Form(ED) Time of Disposition: 11:14 Print Language: FRENCH
[2018-03-05 10:43] LABS: Bacteria,Urine 3+ /HPF (Negative); Bilirubin,Urine NEG (Negative); Blood,Urine NEG (Negative); Color,Urine Yellow (Yellow); Mucus,Urine 3+ /HPF; Protein,Urine <15 mg/dL mg/dL (Negative); Urobilinogen,Urine < 2.0 mg/dL (<2.0)
[2018-03-05 10:50] LABS: HCG Qualitative,Urine Negative (Negative)
[2018-03-05 11:35] VITALS: BP 126/72
== END 2018-03-05 11:33 | disposition home or self-care (01) ==
LOC: ED 08:45
DX: N30.00 Acute cystitis without hematuria (principal); F17.200 Nicotine dependence, unspecified, uncomplicated; Z88.6 Allergy status to analgesic agent
CPT/HCPCS: 81001; 81025; 99283

== ENCOUNTER 2019-06-22 20:08 | Emergency (ER) | payer MEDICAID ==
--- NOTE | 2019-06-22 21:12 | Event Note ---
ED Screening Note Date of service: 06/22/19 Time: 21:09 ED Screening Note: 28 y o female presents with flank pain radiating to bilateral thighs This initial assessment/diagnostic orders/clinical plan/treatment(s) is/are subject to change based on patients health status, clinical progression and re- assessment by fellow clinical providers in the ED. Further treatment and workup at subsequent clinical providers discretion. Patient/guardian urged not to elope from the ED as their condition may be serious if not clinically assessed and managed. Initial orders include: ua
--- NOTE | 2019-06-22 22:22 | Emergency Department Report ---
HPI - General Chief Complaint: Extremity Problem,Nontraumatic Time Seen by Provider: 06/22/19 22:05 - HPI HPI: Room 18 (1 of 2) The patient is a 28-year-old female presenting with a chief complaint of abdominal pain. Patient states for the past 3 days she's had diffuse abdominal pain radiating to her legs. Patient describes pain as sharp and constant in nature. Patient denies nausea vomiting but admits to diarrhea for the past 2 days. Patient denies dysuria, hematuria or vaginal discharge. Patient denies sick contacts or history of fever Location: [See above] Duration: [See above] Quality: [See above] Severity: [See above] Timing: [See above] Context: [See above] Modifying factors: [See above] Associated signs and symptoms: [see above] ED Past Medical Hx - Surgical History Past Surgical History?: No - Family History Family history: no significant - Social History Smoking Status: Current Every Day Smoker (1/2 pack per day) Substance Use Type: None (denies illicit drug use) - Medications Home Medications: Home Medications Medication Instructions Recorded Confirmed Last Taken Type Sulfamethoxazole/Trimethoprim 1 each PO BID #6 tablet 03/05/18 Unknown Rx [Bactrim DS TAB] ED Review of Systems ROS: Stated complaint: ABDOMINAL/LEG PAIN Other details as noted in HPI Constitutional: denies: fever Eyes: denies: eye pain ENT: denies: throat pain Respiratory: no symptoms reported Cardiovascular: denies: chest pain Endocrine: no symptoms reported Gastrointestinal: abdominal pain, diarrhea. denies: nausea, vomiting Genitourinary: denies: dysuria, hematuria, discharge Musculoskeletal: back pain Neurological: denies: headache Physical Exam - Physical Exam Physical Exam: GENERAL: The patient is well-developed well-nourished female sitting on stretcher not appearing to be in acute distress. [] HEENT: Normocephalic. Atraumatic. Extraocular motions are intact. Patient has moist mucous membranes. NECK: Supple. Trachea midline CHEST/LUNGS: Clear to auscultation. There is no respiratory distress noted. HEART/CARDIOVASCULAR: Regular. There is no tachycardia. There is no gallop rub or murmur. ABDOMEN: Abdomen is soft, with diffuse tenderness to palpation. There is no rebound or guarding. Patient has normal bowel sounds. There is no abdominal distention. SKIN: There is no rash. There is no edema. There is no diaphoresis. NEURO: The patient is awake, alert, and oriented. The patient is cooperative. The patient has normal speech MUSCULOSKELETAL: There is bilateral CVA tenderness ED Medical Decision Making - Lab Data Result diagrams: 06/22/19 22:48 06/22/19 22:48 Laboratory Tests 06/22/19 06/22/19 06/22/19 22:48 22:48 22:48 WBC 7.3 RBC 4.62 Hgb 13.1 Hct 39.8 MCV 86 MCH 28 MCHC 33 RDW 15.5 H Plt Count 147 Lymph % (Auto) 42.6 H Mcleod % (Auto) 7.0 Eos % (Auto) 1.7 Baso % (Auto) 0.7 Lymph # 3.1 Mcleod # 0.5 Eos # 0.1 Baso # 0.0 Seg Neutrophils % 48.0 Seg Neutrophils # 3.5 Sodium 139 Potassium 4.2 Chloride 104.4 Carbon Dioxide 23 Anion Gap 16 BUN 11 Creatinine 0.7 Estimated GFR > 60 BUN/Creatinine Ratio 16 Glucose 97 Calcium 9.4 Total Bilirubin 0.20 AST 22 ALT 16 Alkaline Phosphatase 82 Total Protein 7.7 Albumin 4.5 Albumin/Globulin Ratio 1.4 Lipase 30 HCG, Qual Negative Urine Color Urine Turbidity Urine pH Ur Specific [place] Urine Protein Urine Glucose (UA) Urine Ketones Urine Blood Urine Nitrite Urine Bilirubin Urine Urobilinogen Ur Leukocyte Esterase Urine WBC (Auto) Urine RBC (Auto) U Epithel Cells (Auto) Urine Mucus 06/22/19 23:17 WBC RBC Hgb Hct MCV MCH MCHC RDW Plt Count Lymph % (Auto) Mcleod % (Auto) Eos % (Auto) Baso % (Auto) Lymph # Mcleod # Eos # Baso # Seg Neutrophils % Seg Neutrophils # Sodium Potassium Chloride Carbon Dioxide Anion Gap BUN Creatinine Estimated GFR BUN/Creatinine Ratio Glucose Calcium Total Bilirubin AST ALT Alkaline Phosphatase Total Protein Albumin Albumin/Globulin Ratio Lipase HCG, Qual Urine Color Yellow Urine Turbidity Clear Urine pH 6.0 Ur Specific [place] 1.017 Urine Protein <15 mg/dl Urine Glucose (UA) Neg Urine Ketones Neg Urine Blood Neg Urine Nitrite Neg Urine Bilirubin Neg Urine Urobilinogen < 2.0 Ur Leukocyte Esterase Neg Urine WBC (Auto) 1.0 Urine RBC (Auto) 3.0 U Epithel Cells (Auto) 3.0 Urine Mucus Few - Differential Diagnosis enteritis, pyelonephritis, UTI, gastroenteritis Critical care attestation.: If time is entered above; I have spent that time in minutes in the direct care of this critically ill patient, excluding procedure time. ED Disposition Clinical Impression: Acute abdominal pain Disposition: ELOPED Is pt being admited?: No Does the pt Need Aspirin: No Condition: Undetermined Time of Disposition: 00:29 (patient eloped)
[2019-06-22 23:00] LABS: Basophils % (Auto) 0.7 % (0.0-1.8); Eosinophils # (Auto) 0.1 K/mm3 (0.0-0.4); Eosinophils % (Auto) 1.7 % (0.0-4.3); Hematocrit 39.8 % (30.3-42.9); Hemoglobin 13.1 gm/dl (10.1-14.3); Lymphocytes # (Auto) 3.1 K/mm3 (1.2-5.4); Lymphocytes % (Auto) 42.6 % (13.4-35.0); Mean Corpuscular HGB Conc 33 % (30-34); Mean Corpuscular Volume 86 fl (79-97); Monocytes # (Auto) 0.5 K/mm3 (0.0-0.8); Platelet Count 147 K/mm3 (140-440); Red Blood Count 4.62 M/mm3 (3.65-5.03); Red Cell Distribution Width 15.5 % (13.2-15.2)
[2019-06-22 23:24] LABS: Alanine Aminotransferase 16 units/L (7-56); Albumin 4.5 g/dL (3.9-5); BUN/Creatinine Ratio 16; Blood Urea Nitrogen 11 mg/dL (7-17); Calcium 9.4 mg/dL (8.4-10.2); Hemolysis Index 7
[2019-06-23] LABS: Bilirubin,Urine NEG (Negative); Blood,Urine NEG (Negative); Color,Urine Yellow (Yellow); Mucus,Urine FEW /HPF; Protein,Urine <15 mg/dL mg/dL (Negative); Urobilinogen,Urine < 2.0 mg/dL (<2.0)
[2019-06-23 00:17] VITALS: BP 125/76
== END 2019-06-23 00:33 | disposition left against medical advice (07) ==
LOC: ED 20:08
DX: R10.84 Generalized abdominal pain (principal); R19.7 Diarrhea, unspecified; F17.200 Nicotine dependence, unspecified, uncomplicated; Z88.6 Allergy status to analgesic agent
CPT/HCPCS: 36415; 80053; 81001; 83690; 84703; 85025

== ENCOUNTER 2019-12-24 07:11 | Emergency (ER) | payer MEDICAID ==
[2019-12-24 07:20] VITALS: BP 133/68
[2019-12-24] MEDS ORDERED: IBUPROFEN 600 MG TAB PO ONE (08:14)
--- NOTE | 2019-12-24 08:14 | Emergency Department Report ---
ED Female HPI - General Chief complaint: Abdominal Pain Stated complaint: ABD PAIN Source: patient Mode of arrival: Ambulatory Limitations: No Limitations - History of Present Illness Initial comments: 29-year-old -Stateless female presents to the emergency room complaining of pelvic pain that started 2 to 3 months ago. Patient states that it has gotten worse in October and it woke her up in the morning. Patient states that she has been nauseated for the last 3 weeks but no vomiting. Patient states that she had a home test which showed negative then positive and negative. Patient states that her last menstrual period was last month around 12/02/2019 and it only last 3 days where her period usually lasts 7 days. Patient is 6 para 5 with 1 . Patient states that she had a full STD checkup when she was in skilled nursing which was all negative. Patient denies any unusual vaginal discharge no vaginal bleeding. Patient states that the pain rad iates from her pelvic to her her buttocks to her vaginal area. Sometimes sitting will make it worse. MD Complaint: pelvic pain Onset/Timin -: month(s), This morning (Woke her up this morning) Severity scale (0 -10): 10 Quality: sharp Consistency: intermittent Improves with: none Are you Now?: No Last Menstrual Period: 12/02/19 EDC: 09/07/20 Associated Symptoms: nausea/vomiting (Nausea no vomiting). denies: fever/chills - Related Data Sexually active: Yes : 6 Para: 5 A: 1 Previous Rx's Medication Instructions Recorded Last Taken Type Sulfamethoxazole/Trimethoprim 1 each PO BID #6 tablet 03/05/18 Unknown Rx [Bactrim DS TAB] Nitrofurantoin [place]/M-Cryst 100 mg PO Q12HR 10 Days #20 capsule 12/24/19 Unknown Rx [Macrobid CAP] Allergies Allergy/AdvReac Type Severity Reaction Status Date / Time morphine Allergy Swelling Verified 12/24/19 07:13 ED Review of Systems ROS: Stated complaint: ABD PAIN Other details as noted in HPI Comment: All other systems reviewed and negative ED Past Medical Hx - Past Medical History Hx Hypertension: No Hx Congestive Heart Failure: No Hx Diabetes: No Hx Deep Vein Thrombosis: No Hx Renal Disease: No Hx Sickle Cell Disease: No Hx Seizures: No Hx Asthma: No Hx COPD: No Hx Tuberculosis: No Hx HIV: No - Surgical History Past Surgical History?: No - Social History Smoking Status: Current Every Day Smoker Substance Use Type: None - Medications Home Medications: Home Medications Medication Instructions Recorded Confirmed Last Taken Type Sulfamethoxazole/Trimethoprim 1 each PO BID #6 tablet 03/05/18 Unknown Rx [Bactrim DS TAB] Nitrofurantoin [place]/M-Cryst 100 mg PO Q12HR 10 Days #20 capsule 12/24/19 Unknown Rx [Macrobid CAP] ED Physical Exam - General Limitations: No Limitations General appearance: alert, in no apparent distress - Head Head exam: Present: atraumatic, normocephalic - Eye Eye exam: Present: normal appearance - ENT ENT exam: Present: mucous membranes moist - Neck Neck exam: Present: normal inspection, full ROM - GI/Abdominal GI/Abdominal exam: Present: soft, tenderness (Pelvic tenderness), normal bowel sounds. Absent: distended, guarding, rebound - Neurological Exam Neurological exam: Present: alert, oriented X3, normal gait - Psychiatric Psychiatric exam: Present: normal affect, normal mood - Skin Skin exam: Present: warm, dry, intact, normal color. Absent: rash ED Course Vital Signs 12/24/19 07:19 Temperature 98 F Pulse Rate 64 Respiratory 16 Rate Blood Pressure 133/68 [Right] O2 Sat by Pulse 100 Oximetry ED Medical Decision Making - Radiology Data Radiology results: report reviewed Print Report Referring Physician:AYAN BAEPatient Name:BELLA HOUGHPatient ID:[id number] of :[id number]:FemaleAccession:[id number] Date:[id number] Status:Finalized Findings [address] [address] Ultrasound Report Signed Patient: BELLA HOUGH MR#: [id number] : 1990 Acct:[id number] Age/Sex: 29 / F ADM Date: 12/24/19 Loc: ED Attending Dr: Ordering Physician: DWEEY ELDRIDGE Date of Service: 12/24/19 Procedure(s): US pelvic complete Accession Number(s): [id number] cc: DEWEY ELDRIDGE ULTRASOUND PELVIS COMPLETE ULTRASOUND TRANSVAGINAL INDICATION / CLINICAL INFORMATION: Pelvic pain. TECHNIQUE: Transabdominal and Transvaginal. Duplex Color Doppler used: Yes. COMPARISON: None available FINDINGS: UTERUS: Present. - Appearance (if present): No significant abnormality. - Size in cm (if present): 8.2 x 4.4 x 4.9. - Endometrial Complex (if present): No significant abnormality.. Thickness in cm (if measured) = 0.8 - Mass lesions: None. - Additional findings: None. RIGHT ADNEXA: No significant ovarian cyst or mass. Normal color Doppler blood flow. 3.9 x 2.4 x 3.2 cm LEFT ADNEXA: No significant ovarian cyst or mass. Normal color Doppler blood flow. 3.5 x 1.8 x 2.1 cm URINARY BLADDER: No significant abnormality. FREE FLUID: None. ADDITIONAL FINDINGS: None. IMPRESSION: No significant abnormality. Signer Name: Rio Fleming Jr, MD Signed: 12/24/2019 8:53 AM Workstation Name: [id number] Transcribed By: TTR Dictated By: RIO FLEMING JR, MD Electronically Authenticated By: RIO FLEMING JR, MD Signed Date/Time: 12/24/19852 DD/ 0 TD/TT: - Medical Decision Making 29-year-old -Stateless female presents to the emergency room complaining of pelvic pain that started 2 to 3 months ago. Patient states that it has gotten worse in October and it woke her up in the morning. Patient states that she has been nauseated for the last 3 weeks but no vomiting. Patient states that she had a home test which showed negative then positive and negative. Patient states that her last menstrual period was last month around 12/02/2019 and it only last 3 days where her period usually lasts 7 days. Patient is 6 para 5 with 1 . Patient states that she had a full STD checkup when she was in skilled nursing which was all negative. Patient denies any unusual vaginal discharge no vaginal bleeding. Patient states that the pain radiates from her pelvic to her her buttocks to her vaginal area. Sometimes sitting will make it worse. Urinalysis urine test pelvic ultrasound with transvaginal has been ordered She will be treated for urinary tract infection with Macrobid for 10 days increase her fluid intake follow-up with her primary [facility] CONTR[facility]LLER. Critical care attestation.: If time is entered above; I have spent that time in minutes in the direct care of this critically ill patient, excluding procedure time. ED Disposition Clinical Impression: Urinary tract infection Qualifiers: Urinary tract infection type: site unspecified Hematuria presence: without hematuria Qualified Code(s): N39.0 - Urinary tract infection, site not specified Disposition: TO HOME OR SELFCARE Is pt being admited?: No Does the pt Need Aspirin: No Condition: Stable Instructions: Abdominal Pain (ED) Additional Instructions: You will be treated for urinary tract infection with Macrobid for 10 days increase her fluid intake follow-up with her primary [facility] CONTR[facility]LLER. Prescriptions: Nitrofurantoin [place]/M-Cryst [Macrobid CAP] 100 mg PO Q12HR 10 Days #20 capsule Referrals: PRIMARY CARE, [Primary Care Provider] - 3-5 Days [facility] [Provider Group] - 3-5 Days
[2019-12-24 08:15] LABS: Bacteria,Urine 1+ /HPF (Negative); Bilirubin,Urine NEG (Negative); Blood,Urine NEG (Negative); Color,Urine Yellow (Yellow); HCG Qualitative,Urine Negative (Negative); Mucus,Urine FEW /HPF; Protein,Urine <15 mg/dL mg/dL (Negative); Urobilinogen,Urine < 2.0 mg/dL (<2.0)
--- NOTE | 2019-12-24 08:57 | Ultrasound Report ---
ULTRASOUND PELVIS COMPLETE ULTRASOUND TRANSVAGINAL INDICATION / CLINICAL INFORMATION: Pelvic pain. TECHNIQUE: Transabdominal and Transvaginal. Duplex Color Doppler used: Yes. COMPARISON: None available FINDINGS: UTERUS: Present. - Appearance (if present): No significant abnormality. - Size in cm (if present): 8.2 x 4.4 x 4.9. - Endometrial Complex (if present): No significant abnormality.. Thickness in cm (if measured) = 0.8 - Mass lesions: None. - Additional findings: None. RIGHT ADNEXA: No significant ovarian cyst or mass. Normal color Doppler blood flow. 3.9 x 2.4 x 3.2 c m LEFT ADNEXA: No significant ovarian cyst or mass. Normal color Doppler blood flow. 3.5 x 1.8 x 2.1 cm URINARY BLADDER: No significant abnormality. FREE FLUID: None. ADDITIONAL FINDINGS: None. IMPRESSION: No significant abnormality. Signer Name: Rio Fleming Jr, MD Signed: 12/24/2019 8:53 AM Workstation Name: [id number]
== END 2019-12-24 09:14 | disposition home or self-care (01) ==
LOC: ED 07:11
DX: N39.0 Urinary tract infection, site not specified (principal); F17.200 Nicotine dependence, unspecified, uncomplicated; Z88.6 Allergy status to analgesic agent
CPT/HCPCS: 76830; 76856; 81001; 81025; 87086

== ENCOUNTER 2020-04-27 17:52 | Emergency (ER) | payer MEDICAID ==
[2020-04-27 19:59] VITALS: BP 120/65
[2020-04-27 20:56] LABS: Basophils # (Auto) 0.1 K/mm3 (0.0-0.1); Basophils % (Auto) 0.7 % (0.0-1.8); Eosinophils # (Auto) 0.1 K/mm3 (0.0-0.4); Eosinophils % (Auto) 1.5 % (0.0-4.3); Hematocrit 35.9 % (30.3-42.9); Hemoglobin 12.1 gm/dl (10.1-14.3); Lymphocytes # (Auto) 2.6 K/mm3 (1.2-5.4); Lymphocytes % (Auto) 30.4 % (13.4-35.0); Mean Corpuscular HGB Conc 34 % (30-34); Mean Corpuscular Volume 83 fl (79-97); Monocytes # (Auto) 0.7 K/mm3 (0.0-0.8); Monocytes % (Auto) 8.2 % (0.0-7.3); Platelet Count 142 K/mm3 (140-440); Red Cell Distribution Width 16.7 % (13.2-15.2)
--- NOTE | 2020-04-27 21:11 | Ultrasound Report ---
[facility] OBSTETRIC ULTRASOUND HISTORY: Provided clinical history of abdominal pain. COMPARISON: Pelvic ultrasound 12/24/2019 TECHNIQUE: Routine transabdominal OB ultrasound performed. FINDINGS: Uterus: Mildly enlarged measuring 12.0 x 6.8 x 8.0 cm. Gestational Sac: Well-defined oval shape and intrauterine in location. Measures 4.6 cm with estimate d gestational age of weeks 1 day. Yolk Sac: Normal in appearance. Fetus/Embryo: [place]-rump length of 2.6 cm, corresponding to an estimated gestational age of 9 weeks 3 days. Embryonic/ anatomy is too small for evaluation. Embryonic/ cardiac activity: No heart tones identified. Placenta: Too small for evaluation. Amniotic fluid volume: Subjectively appropriate for gestational age. Ovaries: Ovaries are not visualized on today's examination. No significant abnormality in the visuali zed adnexa. Additional findings: None. IMPRESSION 1. Single intrauterine gestation identified with estimated gestational age of 9 weeks and 3 days. No heart tones are identified and findings are concerning for failed . Recommend close co ntinued follow-up and further evaluation as warranted. Signer Name: John Paul Grey MD Signed: 04/27/2020 9:07 PM Workstation Name: [id number]
[2020-04-27 21:44] LABS: Bilirubin,Urine NEG (Negative); Blood,Urine NEG (Negative); Color,Urine Yellow (Yellow); Mucus,Urine 1+ /HPF; Protein,Urine <15 mg/dL mg/dL (Negative); Urobilinogen,Urine < 2.0 mg/dL (<2.0)
--- NOTE | 2020-04-28 01:09 | Emergency Department Report ---
ED HPI - General Chief complaint: Abdominal Pain Stated complaint: ABD PAIN/PREG 9WEEKS Time Seen by Provider: 04/28/20 00:54 Source: patient Mode of arrival: Ambulatory Limitations: No Limitations - History of Present Illness Initial comments: Patient is a 29-year-old female that presents emergency room with complaints of abdominal pain x1 week. Patient states her abdominal pain is worsening. Patient describes abdominal pain as cramping. Patient states she is 9 weeks . Patient states she has been followed by [facility]AIL[facility] OPERATOR. Patient states she is 5. Patient has vaginal bleeding. Patient denies vaginal discharge. Patient denies dysuria. Patient denies any other physical complaints. Patient denies chest pain or shortness of breath. Patient denies recent travel. Patient denies recent international travel. Patient denies exposure to the novel coronavirus. Patient denies sick contacts. Patient denies fever and chills. Patient denies cough. Patient denies diarrhea. Patient denies coming in contact with anybody with symptoms of the novel coronavirus. MD Complaint: abdominal pain -: Sudden Location: pelvis Radiation: none Severity: severe Severity scale (0 -10): 6 Quality: cramping Consistency: constant Improves with: rest Worsens with: movement Associated symptoms: abdominal pain. denies: nausea/vomiting, vaginal bleeding, vaginal discharge, dysuria, headache, vision changes, malaise, dysparuenia, rash, seizure, shortness of breath, syncope, weakness Vaginal bleeding: none :: Yes Number of weeks : 9 OB History - Current : no complications OB History - Previous Pregnancies: no complications Pre- care: followed by OB - Related Data : 6 Para: 5 Previous Rx's Medication Instructions Recorded Last Taken Type Sulfamethoxazole/Trimethoprim 1 each PO BID #6 tablet 03/05/18 Unknown Rx [Bactrim DS TAB] Nitrofurantoin [place]/M-Cryst 100 mg PO Q12HR 10 Days #20 capsule 12/24/19 Unknown Rx [Macrobid CAP] Albuterol Sulfate [Proventil Hfa] 6.7 gm IH TID PRN #1 hfa.aer.ad 02/14/20 Unknown Rx Azithromycin [Zithromax TAB] 250 mg PO QDAY 5 Days #6 tablet 02/14/20 Unknown Rx Prednisone [predniSONE 10 mg 10 mg PO .TAPER #1 tab.ds.pk 02/14/20 Unknown Rx (6-Day Pack, 21 Tabs)] Ibuprofen [Motrin 600 MG tab] 600 mg PO Q8H PRN #30 tablet 02/28/20 Unknown Rx Nitrofurantoin [place]/M-Cryst 100 mg PO Q12HR 10 Days #20 capsule 02/28/20 Unknown Rx [Macrobid CAP] Allergies Allergy/AdvReac Type Severity Reaction Status Date / Time morphine Allergy Swelling Verified 12/24/19 07:13 ED Review of Systems ROS: Stated complaint: ABD PAIN/PREG 9WEEKS Other details as noted in HPI Constitutional: denies: chills, fever Eyes: denies: eye pain, eye discharge, vision change ENT: denies: ear pain, throat pain Respiratory: denies: cough, shortness of breath, wheezing Cardiovascular: denies: chest pain, palpitations Endocrine: no symptoms reported Gastrointestinal: abdominal pain. denies: nausea, diarrhea Genitourinary: denies: urgency, dysuria, discharge Musculoskeletal: denies: back pain, joint swelling, arthralgia Skin: denies: rash, lesions Neurological: denies: headache, weakness, paresthesias Psychiatric: denies: anxiety, depression Hematological/Lymphatic: denies: easy bleeding, easy bruising ED Past Medical Hx - Past Medical History Previous Medical History?: No Hx Hypertension: No Hx Congestive Heart Failure: No Hx Diabetes: No Hx Deep Vein Thrombosis: No Hx Renal Disease: No Hx Sickle Cell Disease: No Hx Seizures: No Hx Asthma: No Hx COPD: No Hx Tuberculosis: No Hx HIV: No - Surgical History Past Surgical History?: No - Social History Smoking Status: Never Smoker Substance Use Type: None - Medications Home Medications: Home Medications Medication Instructions Recorded Confirmed Last Taken Type Sulfamethoxazole/Trimethoprim 1 each PO BID #6 tablet 03/05/18 Unknown Rx [Bactrim DS TAB] Nitrofurantoin [place]/M-Cryst 100 mg PO Q12HR 10 Days #20 capsule 12/24/19 Unknown Rx [Macrobid CAP] Albuterol Sulfate [Proventil Hfa] 6.7 gm IH TID PRN #1 hfa.aer.ad 02/14/20 Unknown Rx Azithromycin [Zithromax TAB] 250 mg PO QDAY 5 Days #6 tablet 02/14/20 Unknown Rx Prednisone [predniSONE 10 mg 10 mg PO .TAPER #1 tab.ds.pk 02/14/20 Unknown Rx (6-Day Pack, 21 Tabs)] Ibuprofen [Motrin 600 MG tab] 600 mg PO Q8H PRN #30 tablet 02/28/20 Unknown Rx Nitrofurantoin [place]/M-Cryst 100 mg PO Q12HR 10 Days #20 capsule 02/28/20 Unknown Rx [Macrobid CAP] ED Physical Exam - General Limitations: No Limitations General appearance: alert, in no apparent distress - Head Head exam: Present: atraumatic, normocephalic - Eye Eye exam: Present: normal appearance - ENT ENT exam: Present: mucous membranes moist - Neck Neck exam: Present: normal inspection - Respiratory Respiratory exam: Present: normal lung sounds bilaterally. Absent: respiratory distress - Cardiovascular Cardiovascular Exam: Present: regular rate, normal rhythm. Absent: systolic murmur, diastolic murmur, rubs, gallop - GI/Abdominal GI/Abdominal exam: Present: soft, normal bowel sounds. Absent: distended, tenderness, guarding - Rectal Rectal exam: Present: deferred - Extremities Exam Extremities exam: Present: normal inspection - Back Exam Back exam: Present: normal inspection - Neurological Exam Neurological exam: Present: alert, oriented X3 - Psychiatric Psychiatric exam: Present: normal affect, normal mood - Skin Skin exam: Present: warm, dry, intact, normal color. Absent: rash ED Course Vital Signs 04/27/20 19:55 Temperature 98.6 F Pulse Rate 70 Respiratory 12 Rate Blood Pressure 120/65 O2 Sat by Pulse 100 Oximetry - Reevaluation(s) Reevaluation #1: I discussed all results and clinical findings with patient. I discussed plan of care with patient. Patient agrees with plan of care. Patient is stable for discharge. Patient will be discharged home. Patient given discharge instructions. Patient voiced understanding of discharge instructions. 04/28/20 01:44 - Consultations Consultation #1: I discussed case with [facility] physician on-call. Dr. Landry states the patient is stable for discharge and can be followed as an outpatient. Dr. Landry wants the patient to come to the clinic in the morning.. 04/28/20 01:43 ED Medical Decision Making - Lab Data Result diagrams: 04/27/20 20:16 - Radiology Data Radiology results: report reviewed [facility] OBSTETRIC ULTRASOUND HISTORY: Provided clinical history of abdominal pain. COMPARISON: Pelvic ultrasound 12/24/2019 TECHNIQUE: Routine transabdominal OB ultrasound performed. FINDINGS: Uterus: Mildly enlarged measuring 12.0 x 6.8 x 8.0 cm. Gestational Sac: Well-defined oval shape and intrauterine in location. Measures 4.6 cm with estimated gestational age of weeks 1 day. Yolk Sac: Normal in appearance. Fetus/Embryo: [place]-rump length of 2.6 cm, corresponding to an estimated gestational age of 9 weeks 3 days. Embryonic/ anatomy is too small for evaluation. Embryonic/ cardiac activity: No heart tones identified. Placenta: Too small for evaluation. Amniotic fluid volume: Subjectively appropriate for gestational age. Ovaries: Ovaries are not visualized on today's examination. No significant abnormality in the visualized adnexa. Additional findings: None. IMPRESSION 1. Single intrauterine gestation identified with estimated gestational age of 9 weeks and 3 days. No heart tones are identified and findings are concerning for failed . Recommend close continued follow-up and further evaluation as warranted. - Medical Decision Making Patient is a 29-year-old female that presents emergency room with complaints of abdominal cramping. Patient is 9 weeks . Patient is a G 6 P5. Patient had an ultrasound done which shows a pole with no heartbeat. Patient's ultrasound is concerning for a failed . Patient's labs are unremarkable. I discussed course and results with patient's DUMP[facility] BAILER OPERATOR on-call. Dr. Landry recommends discharging the patient follow-up tomorrow in the clinic. Patient discharged home. Patient stable for discharge. - Differential Diagnosis Miscarriage, threatened miscarriage, , cramping Critical care attestation.: If time is entered above; I have spent that time in minutes in the direct care of this critically ill patient, excluding procedure time. ED Disposition Clinical Impression: Abdominal cramping affecting , Threatened miscarriage Qualifiers: Weeks of gestation: 9 weeks Qualified Code(s): Z3A.09 - 9 weeks gestation of Disposition: DC-01 TO HOME OR SELFCARE Is pt being admited?: No Does the pt Need Aspirin: No Condition: Stable Instructions: Spontaneous Miscarriage (ED), Threatened Miscarriage (ED), (ED), Abdominal Pain (ED) Additional Instructions: Patient to follow-up with primary care in 2 to 3 days. Patient to follow-up with [facility] BAILER OPERATOR in morning. patient to rest. Patient to increase water. Patient to avoid strenuous exercise or heavy lifting until cleared by DUMPER BAILER OPERATOR. Patient to take Tylenol as needed for pain. Patient to take a vitamin. Patient to return to the ER if condition worsens, changes or new symptoms arise. Referrals: PRIMARY CARE, [Primary Care Provider] - 2-3 Days Time of Disposition: 01:47
== END 2020-04-28 01:52 | disposition home or self-care (01) ==
LOC: ED 17:52
DX: O20.0 Threatened abortion (principal); O26.891 Other specified pregnancy related conditions, first trimester; R10.9 Unspecified abdominal pain; Z3A.09 9 weeks gestation of pregnancy; Z79.1 Long term (current) use of non-steroidal anti-inflammatories (NSAID); Z79.2 Long term (current) use of antibiotics; Z79.899 Other long term (current) drug therapy; Z88.8 Allergy status to other drugs, medicaments and biological substances
CPT/HCPCS: 36415; 76801; 76802; 81001; 84702; 85025; 99284

== ENCOUNTER 2021-05-15 08:05 | Emergency (ER) | payer MEDICAID ==
--- NOTE | 2021-05-15 10:36 | Emergency Department Report ---
Blank Doc - Documentation Documentation: I have entered the room and patient was not in his room. As per Namrata ASHLEY, stated that patient went to the restroom. Since then the patient was not in his room and was nowhere to be found. I did not have any interaction with the patient. Patient was not examined or evaluated at this time. Patient eloped.
[2021-05-15] MEDS ORDERED: diphenhydrAMINE 50 MG/ML VIAL IV ONE (12:04)
[2021-05-15] MEDS ORDERED: DICYCLOMINE 20 MG TAB PO ONE (12:04)
[2021-05-15] MEDS ORDERED: FAMOTIDINE 20 MG/2 ML INJ IV ONE (12:04)
[2021-05-15] MEDS ORDERED: METOCLOPRAMIDE 10 MG/2 ML INJ IV ONE (12:04)
[2021-05-15] MEDS ORDERED: SODIUM CHLORIDE 0.9% 1000 ML 1,000 ML IV ONE (12:04)
[2021-05-15 12:15] LABS: Bacteria,Urine 1+ /HPF (Negative); Bilirubin,Urine NEG (Negative); Blood,Urine NEG (Negative); Color,Urine Yellow (Yellow); Mucus,Urine FEW /HPF; Protein,Urine <15 mg/dL mg/dL (Negative); Urobilinogen,Urine < 2.0 mg/dL (<2.0)
[2021-05-15 12:54] LABS: Basophils % (Auto) 0.4 % (0.0-1.8); Eosinophils % (Auto) 0.7 % (0.0-4.3); Hematocrit 37.6 % (30.3-42.9); Hemoglobin 11.8 gm/dl (10.1-14.3); Lymphocytes # (Auto) 1.9 K/mm3 (1.2-5.4); Mean Corpuscular HGB Conc 31 % (30-34); Mean Corpuscular Volume 78 fl (79-97); Monocytes # (Auto) 0.4 K/mm3 (0.0-0.8); Monocytes % (Auto) 6.7 % (0.0-7.3); Platelet Count 137 K/mm3 (140-440); Red Cell Distribution Width 17.5 % (13.2-15.2)
[2021-05-15 13:12] LABS: Alanine Aminotransferase 15 units/L (7-56); Blood Urea Nitrogen 10 mg/dL (7-17); Calcium 8.9 mg/dL (8.4-10.2); Hemolysis Index 5
[2021-05-15 13:18] LABS: BUN/Creatinine Ratio 17
== END 2021-05-15 13:28 | disposition left against medical advice (07) ==
LOC: ED 08:05
DX: R10.9 Unspecified abdominal pain (principal); Z53.21 Procedure and treatment not carried out due to patient leaving prior to being seen by health care provider
CPT/HCPCS: 36415; 80053; 81001; 83690; 84703; 85025; 87076; 87086; 87186; 96361; 96374; 96375; J1200; J2765; J7030; 99283

== ENCOUNTER 2021-08-09 09:42 | Outpatient (CLI) | payer OTHER ==
--- NOTE | 2021-08-09 11:03 | XRay Report ---
Bilateral wrist series -4 views INDICATION: BILATERAL WRIST PAIN. COMPARISON: None available. IMPRESSION: No acute osseous abnormality. Normal alignment. No significant DJD. Soft tissues are u nremarkable. Signer Name: Daniel Smith MD Signed: 08/09/2021 10:59 AM Workstation Name: [id number]
== END 2021-08-09 09:43 | disposition home or self-care (01) ==
LOC: XRAY 09:42
PROVIDERS: ATTEND Internal Medicine
DX: M25.531 Pain in right wrist (principal); M25.532 Pain in left wrist

== ENCOUNTER 2021-12-10 07:00 | Emergency (ER) | payer MEDICAID, OTHER ==
[2021-12-10 07:08] VITALS: BP 116/45
[2021-12-10] MEDS ORDERED: oxyCODONE /ACETAMINOPHEN 5-325MG TAB PO ONE (10:32)
[2021-12-10 11:44] LABS: HCG Qualitative,Urine Negative (Negative)
[2021-12-10 11:48] LABS: Bilirubin,Urine NEG (Negative); Blood,Urine NEG (Negative); Color,Urine Yellow (Yellow); Mucus,Urine FEW /HPF; Protein,Urine <15 mg/dL mg/dL (Negative)
[2021-12-10] MEDS ORDERED: LIDOCAINE-MPF (1%) 10 MG/1 ML VIAL 5 ML INFILTRATI ONE (12:12)
--- NOTE | 2021-12-10 12:19 | Emergency Department Report ---
- General Chief complaint: Pain General Stated complaint: ARM SWELLING/BURNING URINATION Time Seen by Provider: 12/10/21 10:30 Source: patient Mode of arrival: Ambulatory Limitations: No Limitations - History of Present Illness Initial comments: 31-year-old black female with no past medical history presents to the emergency department for evaluation of right shoulder pain and swelling that started on Friday. She states that she noted a bug bite to her shoulder on Friday and since then she has had increasing pain swelling and redness to the area. She states that her friend expressed purulent drainage from area this AM. She denies fever. She also complains of vaginal discharge, vaginal irritation, and dysuria for the past several days. She denies abdominal pain, nausea, vomiting, diarrhea. MD complaint: insect bite/sting, abscess/boil -: Gradual, days(s) (3) Tetanus Up to Date: yes Location: RUE Severity: severe (Right shoulder) Severity scale (0 -10): 10 Quality: burning, aching Consistency: constant Worsens with: palpation, movement Associated symptoms: denies other symptoms Treatments Prior to Arrival: attempted to drain pus at - Related Data Previous Rx's Medication Instructions Recorded Last Taken Type Sulfamethoxazole/Trimethoprim 1 each PO BID #6 tablet 03/05/18 Unknown Rx [Bactrim DS TAB] Nitrofurantoin Hudspeth/M-Cryst 100 mg PO Q12HR 10 Days #20 capsule 12/24/19 Unknown Rx [Macrobid CAP] Albuterol Sulfate [Proventil Hfa] 6.7 gm IH TID PRN #1 hfa.aer.ad 02/14/20 Unknown Rx Azithromycin [Zithromax TAB] 250 mg PO QDAY 5 Days #6 tablet 02/14/20 Unknown Rx Prednisone [predniSONE 10 mg 10 mg PO .TAPER #1 tab.ds.pk 02/14/20 Unknown Rx (6-Day Pack, 21 Tabs)] Ibuprofen [Motrin 600 MG tab] 600 mg PO Q8H PRN #30 tablet 02/28/20 Unknown Rx Nitrofurantoin Hudspeth/M-Cryst 100 mg PO Q12HR 10 Days #20 capsule 02/28/20 Unknown Rx [Macrobid CAP] Acetaminophen/Codeine [Tylenol 1 tab PO Q6H PRN #12 tab 12/10/21 Unknown Rx /Codeine # 3 tab] DOXYCYCLINE Hyclate [Vibramycin] 100 mg PO Q12HR #14 capsule 12/10/21 Unknown Rx Naproxen [Naprosyn] 500 mg PO BID #14 tab 12/10/21 Unknown Rx metroNIDAZOLE [Flagyl] 500 mg PO Q12HR #14 tab 12/10/21 Unknown Rx Allergies Allergy/AdvReac Type Severity Reaction Status Date / Time morphine Allergy Swelling Verified 05/15/21 08:30 Abscess Boil HPI - HPI Chief Complaint: Pain General Stated Complaint: ARM SWELLING/BURNING URINATION Time Seen by Provider: 12/10/21 10:30 Duration: 4 Days Location: Upper Extremity (Right shoulder) History: Yes Pain, Yes Purulent Drainage, Yes Insect Bite, No Fever, No Numbness, No Foreign Body, No Previous History Home Medications: Previous Rx's Medication Instructions Recorded Last Taken Type Sulfamethoxazole/Trimethoprim 1 each PO BID #6 tablet 03/05/18 Unknown Rx [Bactrim DS TAB] Nitrofurantoin Hudspeth/M-Cryst 100 mg PO Q12HR 10 Days #20 capsule 12/24/19 Unknown Rx [Macrobid CAP] Albuterol Sulfate [Proventil Hfa] 6.7 gm IH TID PRN #1 hfa.aer.ad 02/14/20 Unknown Rx Azithromycin [Zithromax TAB] 250 mg PO QDAY 5 Days #6 tablet 02/14/20 Unknown Rx Prednisone [predniSONE 10 mg 10 mg PO .TAPER #1 tab.ds.pk 02/14/20 Unknown Rx (6-Day Pack, 21 Tabs)] Ibuprofen [Motrin 600 MG tab] 600 mg PO Q8H PRN #30 tablet 02/28/20 Unknown Rx Nitrofurantoin Hudspeth/M-Cryst 100 mg PO Q12HR 10 Days #20 capsule 02/28/20 Unknown Rx [Macrobid CAP] Acetaminophen/Codeine [Tylenol 1 tab PO Q6H PRN #12 tab 12/10/21 Unknown Rx /Codeine # 3 tab] DOXYCYCLINE Hyclate [Vibramycin] 100 mg PO Q12HR #14 capsule 12/10/21 Unknown Rx Naproxen [Naprosyn] 500 mg PO BID #14 tab 12/10/21 Unknown Rx metroNIDAZOLE [Flagyl] 500 mg PO Q12HR #14 tab 12/10/21 Unknown Rx Allergies/Adverse Reactions: Allergies Allergy/AdvReac Type Severity Reaction Status Date / Time morphine Allergy Swelling Verified 05/15/21 08:30 ED Review of Systems ROS: Stated complaint: ARM SWELLING/BURNING URINATION Other details as noted in HPI Comment: All other systems reviewed and negative Constitutional: denies: chills, fever Eyes: denies: vision change ENT: denies: congestion Respiratory: denies: cough, shortness of breath Cardiovascular: denies: chest pain, palpitations, dyspnea on exertion Gastrointestinal: denies: abdominal pain, nausea, vomiting, diarrhea, hematemesis, melena, hematochezia Genitourinary: dysuria, discharge. denies: urgency, frequency, hematuria, dyspareunia Musculoskeletal: denies: back pain Skin: denies: rash Neurological: denies: headache, weakness ED Past Medical Hx - Past Medical History Hx Hypertension: No Hx Congestive Heart Failure: No Hx Diabetes: No Hx Deep Vein Thrombosis: No Hx Renal Disease: No Hx Sickle Cell Disease: No Hx Seizures: No Hx Asthma: No Hx COPD: No Hx Tuberculosis: No Hx HIV: No - Surgical History Past Surgical History?: No - Social History Smoking Status: Current Every Day Smoker - Medications Home Medications: Home Medications Medication Instructions Recorded Confirmed Last Taken Type Sulfamethoxazole/Trimethoprim 1 each PO BID #6 tablet 03/05/18 Unknown Rx [Bactrim DS TAB] Nitrofurantoin Hudspeth/M-Cryst 100 mg PO Q12HR 10 Days #20 capsule 12/24/19 Unknown Rx [Macrobid CAP] Albuterol Sulfate [Proventil Hfa] 6.7 gm IH TID PRN #1 hfa.aer.ad 02/14/20 Unknown Rx Azithromycin [Zithromax TAB] 250 mg PO QDAY 5 Days #6 tablet 02/14/20 Unknown Rx Prednisone [predniSONE 10 mg 10 mg PO .TAPER #1 tab.ds.pk 02/14/20 Unknown Rx (6-Day Pack, 21 Tabs)] Ibuprofen [Motrin 600 MG tab] 600 mg PO Q8H PRN #30 tablet 02/28/20 Unknown Rx Nitrofurantoin Hudspeth/M-Cryst 100 mg PO Q12HR 10 Days #20 capsule 02/28/20 Unknown Rx [Macrobid CAP] Acetaminophen/Codeine [Tylenol 1 tab PO Q6H PRN #12 tab 12/10/21 Unknown Rx /Codeine # 3 tab] DOXYCYCLINE Hyclate [Vibramycin] 100 mg PO Q12HR #14 capsule 12/10/21 Unknown Rx Naproxen [Naprosyn] 500 mg PO BID #14 tab 12/10/21 Unknown Rx metroNIDAZOLE [Flagyl] 500 mg PO Q12HR #14 tab 12/10/21 Unknown Rx ED Physical Exam - General Limitations: No Limitations General appearance: alert - Head Head exam: Present: atraumatic, normocephalic - Eye Eye exam: Present: normal appearance. Absent: conjunctival injection - Neck Neck exam: Present: normal inspection, full ROM. Absent: tenderness, lymphadenopathy - Respiratory Respiratory exam: Present: normal lung sounds bilaterally. Absent: respiratory distress, wheezes, rales, rhonchi, stridor, chest wall tenderness - Cardiovascular Cardiovascular Exam: Present: regular rate, normal heart sounds - GI/Abdominal GI/Abdominal exam: Present: soft, normal bowel sounds. Absent: distended, tenderness, guarding, rebound, rigid - External exam: Present: normal external exam Speculum exam: Present: vaginal discharge, cervical discharge. Absent: vaginal bleeding, foreign body Bi-manual exam: Absent: cervical motion tendernes, adnexal tenderness, adnexal mass - Extremities Exam Extremities exam: Present: normal inspection, full ROM, tenderness, normal capillary refill. Absent: pedal edema, joint swelling, calf tenderness - Expanded Upper Extremity Exam Right Shoulder Exam: Present: tenderness, swelling, erythema, other (Noted to have bug bite surrounded by erythema, edema and tenderness. Area noted to have some purulent drainage coming from it). Absent: normal inspection Upper Arm exam: Present: tenderness, swelling Vascular: Present: normal capillary refill, radial pulse. Absent: vascular compromise, Pallo, pulse deficit radial art - Back Exam Back exam: Present: normal inspection - Neurological Exam Neurological exam: Present: alert, oriented X3, normal gait - Psychiatric Psychiatric exam: Present: normal affect, normal mood - Skin Skin exam: Present: warm, dry, intact, normal color ED Course Vital Signs 12/10/21 07:02 Temperature 98.9 F Pulse Rate 80 Respiratory 17 Rate Blood Pressure 116/45 O2 Sat by Pulse 100 Oximetry ED Medical Decision Making - Medical Decision Making 31-year-old black female with no past medical history presents to the emergency department for evaluation of right shoulder pain and swelling that started on Friday. She states that she noted a bug bite to her shoulder on Friday and since then she has had increasing pain swelling and redness to the area. She states that her friend expressed purulent drainage from area this AM. She denies fever. She also complains of vaginal discharge, vaginal irritation, and dysuria for the past several days. She denies abdominal pain, nausea, vomiting, diarrhea. Exam and symptoms consistent with abscess/cellulitis of right shoulder likely secondary to insect bite. Purulent drainage noted from area, so patient will be treated with 7-day course of doxycycline along with naproxen and Tylenol 3 to take as needed for pain.. Wet prep positive for BV, so patient be treated with 7-day course of Flagyl. Patient states that she is concerned with STDs, so sample sent for gonorrhea chlamydia, and patient given Rocephin IM 500 mg x 1 dose. She is advised to take medications as prescribed and follow-up with [facility] or primary care provider if no improvement or worsening symptoms. She is advised to return to the emergency department for any concerning symptoms. She verbalizes understanding of and agreement with plan of care. Critical care attestation.: If time is entered above; I have spent that time in minutes in the direct care of this critically ill patient, excluding procedure time. ED Disposition Clinical Impression: Cutaneous abscess of right shoulder, Bacterial vaginosis Disposition: 01 HOME / SELF CARE / HOMELESS Is pt being admited?: No Does the pt Need Aspirin: No Condition: Stable Instructions: Antibiotic Medicine, Adult, [id number], Skin Abscess, [id number], Bacterial Vaginosis, [id number], Bacterial Vaginosis (ED) Additional Instructions: Take medications as prescribed. Drink plenty of noncaffeinated fluids. Follow- up with primary care provider if no improvement or worsening symptoms. Return to the emergency department if you develop fever or any concerning symptoms. Prescriptions: metroNIDAZOLE [Flagyl] 500 mg PO Q12HR #14 tab Naproxen [Naprosyn] 500 mg PO BID #14 tab Acetaminophen/Codeine [Tylenol /Codeine # 3 tab] 1 tab PO Q6H PRN #12 tab PRN Reason: Pain , Severe (7-10) DOXYCYCLINE Hyclate [Vibramycin] 100 mg PO Q12HR #14 capsule Referrals: YURI ZEPEDA MD [Staff Physician] - 3-5 Days [facility] [Provider Group] - 3-5 Days Forms: STI Treatment and Prevention, Work/School Release Form(ED) Time of Disposition: 12:18
== END 2021-12-10 12:59 | disposition home or self-care (01) ==
LOC: ED 07:00
DX: L02.413 Cutaneous abscess of right upper limb (principal); N76.0 Acute vaginitis; B96.89 Other specified bacterial agents as the cause of diseases classified elsewhere; F17.290 Nicotine dependence, other tobacco product, uncomplicated; Z88.6 Allergy status to analgesic agent
CPT/HCPCS: 81001; 81025; 87086; 87210; 87591; 96372; 99284; J0696; J3490